=== PATIENT | male | born 1955 | race African-American/Black ===

== ENCOUNTER 2018-11-29 02:54 | Inpatient (IN) | payer OTHER ==
[2018-11-29] VITALS (9 sets, daily range): BP systolic 118–179; BP diastolic 68–105
[~2018-11-29] VITALS: Ht 180.3 cm; Wt 99.3 kg
--- NOTE | 2018-11-29 03:10 | NUR ---
ED Nurse Note: RECIEVED PT HUNTERPancho FROM HOME, PT HERE WITH C/O SEVERE 10/10 HEADACHE FOR ABOUT 5 HOURS WHICH HAS NOT LET HIM SLEEP, PT DENIES CP, SOB, FEVERS OR ANY OTHER COMPLAINTS, NO VISUAL CHANGES OR DIZZINESS JUST PAIN, PT IMMEDIATELY GOWNED AND PLACED ON CARDIAC MONITORING, IV LINE PLACED AND LABS DONE ALSO, MD AT BEDSIDE, WILL RESUME CARE ORDERED AND CLOSELY MONITOR.
[2018-11-29] MEDS ORDERED: Metoclopramide 10mg/2ml Inj IVP ONE (03:15)
[2018-11-29] MEDS ORDERED: Ketorolac 30mg Inj IV ONE (03:15)
--- NOTE | 2018-11-29 03:17 | Emergency Room Report ---
History of Present Illness General Chief Complaint: Headache Source: Patient Present Illness HPI This is a 63-year-old male with a history of high blood pressure. He presents with chief complaint of a headache for the last 5 hours. He said his blood pressure is high. Normally do not get much headache. Pain is throbbing in nature. Diffuse. No focal deficit. No relief with his blood pressure medication. Patient said that noticed some slight slurring of his speech tonight. Denies any trauma or fever. No nausea no vomiting. No chest pain. Pain is 10 out of 10. Allergies: Coded Allergies: No Known Allergies (Unverified , 11/29/18) Patient History Past Medical History: see triage record, old chart reviewed, HTN, CVA/TIA Past Surgical History: other Pertinent Family History: none Social History: Denies: smoking, alcohol use, drug use Immunizations: other Reviewed Nursing Documentation: PMH: Agreed; PSxH: Agreed Nursing Documentation-PMH Hx Hypertension: Yes Hx Diabetes: Yes Hx Cerebrovascular Accident: Yes - stroke 1999, hypercholesterol Review of Systems Eye: Denies: eye pain, blurred vision ENT: Denies: ear pain, nose congestion, throat swelling Respiratory: Denies: cough, shortness of breath Cardiovascular: Denies: chest pain, palpitations Gastrointestinal: Denies: abdominal pain, diarrhea, nausea, vomiting Musculoskeletal: Denies: back pain, joint pain Skin: Denies: rash Neurological: Reports: headache; Denies: numbness Endocrine: Denies: increased thirst, increased urine Hematologic/Lymphatic: Denies: easy bruising All Other Systems: negative except mentioned in HPI Physical Exam Vital Signs Date Time Temp Pulse Resp B/P (MAP) Pulse Ox O2 Delivery O2 Flow Rate FiO2 11/29/18 02:55 98.1 86 18 180/90 (120) 97 Room Air Vitals with high blood pressure Sp02 EP Interpretation: reviewed, normal General Appearance: well appearing, no apparent distress, alert Head: normocephalic, atraumatic Eyes: bilateral eye PERRL, bilateral eye EOMI ENT: hearing grossly normal, normal pharynx Neck: full range of motion, supple, no meningismus Respiratory: chest non-tender, lungs clear, normal breath sounds Cardiovascular #1: regular rate, rhythm, no murmur Gastrointestinal: normal bowel sounds, non tender, no mass, no organomegaly, no bruit, non-distended Musculoskeletal: back normal, gait/station normal, normal range of motion Psychiatric: mood/affect normal Skin: warm/dry Medical Decision Making Diagnostic Impression: Primary Impression: CVA (cerebral vascular accident) Qualified Codes: I63.9 - Cerebral infarction, unspecified Additional Impressions: Hypertension Qualified Codes: I10 - Essential (primary) hypertension Cocaine abuse ER Course Patient presents with headache and high blood pressure. CT scan showed a subacute infarct in the right posterior parietal region measures 5.1 x 4.3 cm. Other than subjective slurred speech, he has no other focal deficit. He does have some imbalance for the last week. Given aspirin here. I gave him hydralazine for his blood pressure. We will try to keep blood pressure around 170-[address] Mixon, neurologist. I also contacted Dr. Romero for admission. EKG Diagnostic Results Rate: normal Rhythm: NSR ST Segments: no acute changes ASA given to the pt in ED: Yes Rhythm Strip Diag. Results EP Interpretation: yes Rate: 80 Rhythm: NSR, no PVC's, no ectopy CT/MRI/US Diagnostic Results CT/MRI/US Diagnostic Results : Imaging Test Ordered: CT head Impression Read by radiologist. Infarct in the right posterior parietal region of the brain. Most likely subacute. Last Vital Signs Date Time Temp Pulse Resp B/P (MAP) Pulse Ox O2 Delivery O2 Flow Rate FiO2 11/29/18 02:55 98.1 86 18 180/90 (120) 97 Room Air Status: improved Disposition: ADMITTED INPATIENT Condition: Serious Benson Chavez MD Nov 29, 2018 03:17
[2018-11-29 03:39] LABS: BASOPHILS % (AUTO) 1.3 % (0.0-2.0); EOSINOPHILS % (AUTO) 0.6 % (0.0-3.0); HEMATOCRIT 43.2 % (42.0-52.0); HEMOGLOBIN 15.3 G/DL (14.2-18.0); LYMPHOCYTES % (AUTO) 20.3 % (20.0-45.0); MEAN CORPUSCULAR VOLUME 82 FL (80-99); MONOCYTES % (AUTO) 9.3 % (1.0-10.0); NEUTROPHILS % (AUTO) 68.5 % (45.0-75.0); PLATELET COUNT 331 K/UL (150-450); RED BLOOD COUNT 5.25 M/UL (4.70-6.10); RED CELL DISTRIBUTION WIDTH 10.2 % (11.6-14.8)
[2018-11-29 03:48] LABS: ANION GAP 9 mmol/L (5-15); BLOOD UREA NITROGEN 17 mg/dL (7-18); CALCIUM 9.1 MG/DL (8.5-10.1); CARBON DIOXIDE 26 MMOL/L (21-32); CHLORIDE 98 MMOL/L (98-107); CREATININE 1.5 MG/DL (0.55-1.30); POTASSIUM 4.1 MMOL/L (3.5-5.1); SODIUM 133 MMOL/L (136-145)
[2018-11-29] MEDS ORDERED: Acetaminophen 500mg (ES) tab ORAL ONE ×2 (04:25→04:30)
--- NOTE | 2018-11-29 04:30 | NUR ---
ED Nurse Note: PT CONTINUES TO REST IN BED, HEADACHE AT 7/10 AFTER MEDS, EFFECTIVE FOR B/P, PT POSITIVE FOR STROKE, PT SAT UP AND SWALLOW EXAM DONE, PT TOLERATED WELL, NO SWALLOWING DIFFICULTIES NOTED, PT WAS NOTED WITH SHAKING AND LESS HAND STRENGTH OF LEFT HAND AND PT STATES TOLD HIM EARLIER TODAY HIS SPEECH SEEMED SLURRED AT TIMES AND PT ALSO STATES HE HAD FALL X 2 YESTERDAY, PT REMAINS ON CARDIAC MONITORING, WILL CONTINUE TO MONITOR AND PREPARE FOR DISPOSITION, ADMIT OR TRANSFER.
[2018-11-29 05:08] LABS: APPEARANCE,URINE CLEAR; BILIRUBIN, URINE NEGATIVE (NEGATIVE); GLUCOSE, URINE (UA) 4+ (NEGATIVE); KETONES,URINE 1+ (NEGATIVE); LEUKOCYTE ESTERASE ,URINE NEGATIVE (NEGATIVE); NITRITE,URINE NEGATIVE (NEGATIVE); PH,URINE 5 (4.5-8.0); PROTEIN,URINE 4+ (NEGATIVE); UROBILINOGEN,URINE 4 MG/DL (0.0-1.0)
[2018-11-29 05:16] LABS: COLOR,URINE YELLOW
--- NOTE | 2018-11-29 06:00 | NUR ---
NURSE NOTES: Pt report has been received from [facility]. Pt is alert and oriented times 4, able to follow commands. pt pupils are round and reactive to light and accommodating bilaterally. Pt has a quality assurance monitor body place, active, and showing NSR on the monitor. no signs or symptoms of acute cardiac distress noted. pt is saturating at 100%, no signs or symptoms of acute respiratory distress noted. all safety precautions are active, bed low and locked, call light within reach, bed rails up times 3. pt demands all belongings at bed side, belongings list has been signed/ confirmed by PT. will establish plan of care.
[2018-11-29] MEDS ORDERED: ERGOCALCIFEROL1 GM MC (06:11)
[2018-11-29] MEDS ORDERED: INSULIN LI100 UNIT/1 SQ (06:13)
[2018-11-29] MEDS ORDERED: ATHLETIC FOOT C30 GM TOPIC (06:13)
[2018-11-29] MEDS ORDERED: PRINIVIL10 MG ORAL (06:13)
[2018-11-29] MEDS ORDERED: GABAPENTIN400 MG ORAL (06:13)
[2018-11-29] MEDS ORDERED: OMEPRAZOLE20 M2 ORAL (06:13)
[2018-11-29] MEDS ORDERED: METFORMIN HCL500 M1 ORAL (06:13)
[2018-11-29] MEDS ORDERED: PROSCAR5 MG ORAL (06:13)
--- NOTE | 2018-11-29 06:15 | NUR ---
TRANSFER TO FLOOR: Patient transferred to Tele as ordered, per . Report given to KALE Rosario
[2018-11-29] MEDS ORDERED: Acetaminophen 500mg (ES) tab ORAL PRN (06:30)
--- NOTE | 2018-11-29 07:08 | NUR ---
NURSE NOTES: received patient report from maia jackson.patient is on bed asleep. not in acute distress. patient has an order for tele transfer. no arrythmias reported during the night. bed is low and locked for safety. will follow plan of care.
--- NOTE | 2018-11-29 07:25 | NUR ---
HAND-OFF: Report given to Marlena HENLEY CHIDI.
--- NOTE | 2018-11-29 07:46 | NUR ---
NURSE NOTES: left a message to dr cannon to call back regarding dr fernández order to caLL dr cannon regarding blood sugar level of 400. awaits callback and new order as of this time.
--- NOTE | 2018-11-29 09:42 | Diagnostic Imaging Report ---
Indications: Headache for approximately 6 hours Technique: Spiral acquisitions obtained through the brain. Angled axial and coronal 5 x 5 mm slices were reconstructed. Total dose length product 1414.79 mGycm. CTDI vol(s) 70.38 mGy. Dose reduction achieved using automated exposure control Comparison: Findings: Low-attenuation is seen involving the posterior parasagittal parietal lobe and occipital lobe. There is slight ex vacuo dilatation of the atrium and and temporal horn of the right lateral ventricle. There is generalized mild age-related enlargement of the extra-axial CSF spaces. There is periventricular deep white matter low-attenuation. There are multiple old lacunar infarcts in the left basal ganglia. No acute hemorrhage. No mass effect nor midline shift. Normal lópez-white differentiation elsewhere. There is some soft tissue thickening of the high parietal scalp at the vertex. Impression: Late subacute versus old right posterior cerebral artery distribution infarct Other old infarcts as described Other chronic and age-related changes, as described Negative for acute intracranial bleed or mass effect Questionable high parietal midline scalp soft tissue injury-correlate with clinical history and findings This agrees with the preliminary interpretation provided overnight by [facility] teleradiology service. The CT scanner at [facility] is accredited by the [employer] and the scans are performed using protocols designed to limit radiation exposure to as low as reasonably achievable to attain images of sufficient resolution adequate for diagnostic evaluation.
[2018-11-29] MEDS ORDERED: Levemir Flexpen SUBQ ONE (11:00)
[2018-11-29] MEDS: NovoLOG Insulin Flexpen SUBQ SCH ×3 (11:24→21:13)
--- NOTE | 2018-11-29 12:08 | NUR ---
CASE MANAGEMENT: INITIAL REVIEW 63 YO M BROOK FROM HOME CC: CASTILLO. HTN. DM. PMHx: HTN. CVA/TIA. SI:STROKE T 98.1 HR 86 RR 18 B/P 180/90 SATS 97% ON RA NA 133 CR 1.5 GLU 400 UTOX (+COCAINE) IS: HYDRALAZINE IV X1 NS BOLUS X1 REGLAN IV X1 TORADOL IV X1 TYLENOL POX1 PATIENT ADMITTED TO SDU 11/29/2018 @ 0447 DCP: PATIENT TO BE DISCHARGED TO HOME ONCE MEDICALLY CLEARED. PLAN OF CARE: CARDIO CONSULT Addendum: 11/29/18 at 1707 by Dorinda Mandel CM INTERQUAL MET
--- NOTE | 2018-11-29 12:17 | Consultation ---
Consult Note Consult Note asked to eval for elevated Cr and HTN management This is a 63-year-old male with a history of high blood pressure. He presents with chief complaint of a headache for the last 5 hours. He said his blood pressure is high. Normally do not get much headache. Pain is throbbing in nature. Diffuse. No focal deficit. No relief with his blood pressure medication. Patient said that noticed some slight slurring of his speech tonight. Denies any trauma or fever. No nausea no vomiting. No chest pain. Pain is 10 out of 10. No Known Allergies (Unverified , 11/29/18) Hx Hypertension: Yes Hx Diabetes: Yes Hx Cerebrovascular Accident: Yes - stroke 1999, hypercholesterol examined data reviewed . Assessment/Plan HTN OOC Cocaine abuse CVA High Chol Proteinuria BP control BS control no beta blockers check labs, chol.... per orders Manan Amezcua MD Nov 29, 2018 12:17
[2018-11-29] MEDS ORDERED: Tamsulosin 0.4mg cap ORAL SCH (12:30)
[2018-11-29] MEDS ORDERED: Aspirin Baby 81mg ORAL SCH (12:30)
--- NOTE | 2018-11-29 13:39 | NUR ---
*-* INSURANCE *-* ALL CLINICALS AND REVIEWS HAVE BEEN FAXED TO: [[facility] [employer]] CLINICALS TO BE FAXED AT [phone]
--- NOTE | 2018-11-29 14:17 | NUR ---
ST NOTE: BEDSIDE SWALLOW EVAL RECEIVED BEDSIDE SWALLOW EVAL ORDER CHART REVIEWED PRIOR THE EVALUATION PT IS A 63-YEAR-OLD MALE WHO WAS ADMITTED DUE TO CVA AND SLURRED SPEECH. PT HAS H/O CVA(1999) W/L-SIDED WEAKNESS, HTN AND DM, COCAINE USE. PER HEAD CT: LATE SUBACUTE VS OLD R POSTERIOR CEREBRAL ARTERY DISTRIBUTION INFARCT. OLD LACUNAR INFARCTS IN THE L BASAL GANGLIA. PT LIVES AT HOME. CURRENT STATUS: PT SEEN AT BEDSIDE IN AM. ALERT, COOPERATIVE, ABLE TO FOLLOW DIRECTIONS, DENIED ANY SWALLOWING DIFFICULTY, PT'S SPEECH IS INTELLIGIBLE. GIVEN PO TRIALS: THIN(3OZ, SELF, ANNIE PROTOCOL), PUREE(TSP) AND CRACKER. INITIAL IMPRESSION: MILD R-SIDED FACIAL WEAKNESS, GOOD MASTICATION TIME, GOOD ORAL TRANSIT TIME AND FAIR LARYNGEAL ELEVATION, NO OVERT S/S OF ASPIRATION. OVERALL, PT'S SWALLOWING SEEMS FUNCTIONAL. HAS SILENT ASPIRATION RISK DUE TO LATE SUBACUTE CVA. RECOMMENDATIONS: 1. SLOWLY INITIATE SOFT, EASY CHEW WITH THIN LIQUIDS DIET. 2. ASPIRATION PRECAUTIONS 3. CONSIDER MODIFIED BARIUM SWALLOW STUDY IP OR OP. D/W DAVID HENLEY.
--- NOTE | 2018-11-29 15:07 | NUR ---
PT EVALUATION NOTE Patient seen for initial evaluation, see complete evaluation for details. Patient presents with impaired balance and coordination, generalized weakness which affects patient's ability to perform transfers and ambulation safely. Patient will benefit from skilled inpatient PT intervention to address balance, safety, strength and functional mobility. Recommend discharge home with home PT vs short term SNF/ARU depending on patient's progress once medically cleared by MD. Patient may require assistance at home as patient lives alone. Recommend FWW for home use for ambulation as patient has history of falls using his SPC. Addendum: 11/29/18 at 1508 by RAUL TRUJILLO PT Amended: Links added.
[2018-11-29] MEDS: Tamsulosin 0.4mg cap ORAL SCH (17:05)
--- NOTE | 2018-11-29 18:00 | NUR ---
NURSE NOTES: left a message to dr paris regarding this patient. awaits callback and new order.
--- NOTE | 2018-11-29 19:01 | NUR ---
HAND-OFF: Report given to abran jackson.
--- NOTE | 2018-11-29 19:02 | NUR ---
NURSE NOTES: Received patient from Eitan RN. Patient is resting with no signs of distress. Patient on room air and running NS at 50cc an hour. Bed is at its lowest position, call light in reach and X3 bed rails up.Will continue to monitor.
[2018-11-29] MEDS ORDERED: NovoLOG Insulin Flexpen SUBQ SCH (21:00)
[2018-11-29] MEDS: Levemir Flexpen SUBQ SCH (21:14)
--- NOTE | 2018-11-29 22:27 | NUR ---
NURSE NOTES: Call Dr. Romero regarding patients's head and eye pain 10/10. Pain persists 30min. after prescribe pain medication of Tylenol is given. Patient asked for stronger pain medication.
--- NOTE | 2018-11-29 22:51 | NUR ---
NURSE NOTES: Dr. Romero called back and referred me to call Dr Mullins for pain management. Dr Romero is reluctant to prescribe morphine because it may hide possible symptoms of worsening stroke
[2018-11-29] MEDS ORDERED: Gabapentin 300 MG/6 ML Soln ORAL SCH (23:10)
--- NOTE | 2018-11-29 23:15 | Consultation ---
DATE OF CONSULTATION: 11/29/2018 NEPHROLOGY CONSULTATION CONSULTING PHYSICIAN: Devin Velasco M.D. REFERRING PHYSICIAN: Erin Romero M.D. REASON FOR CONSULTATION: Diabetes management. HISTORY OF PRESENT ILLNESS: The patient is a 63-year-old male with history of high blood pressure, diabetes, insulin dependent, presents to the hospital with headache for 5 hours, blood pressure is high, admitted to the hospital for observation and treatment and I was called to manage diabetes. The patient's noticed some slight slurring of the speech, therefore, CVA needs to be ruled out. PAST MEDICAL HISTORY: Diabetes, hypertension, CVA, and transient ischemic attack. PAST SURGICAL HISTORY: None. ALLERGIES TO MEDICATIONS: None. FAMILY HISTORY: Diabetes. SOCIAL HISTORY: No smoking, alcohol, or drug use. REVIEW OF SYSTEMS: As per history of present illness. PHYSICAL EXAMINATION: GENERAL: He is awake and alert. VITAL SIGNS: Blood pressure is 174/100, pulse of 71, temperature of 97.5, and respiratory rate of 21. HEENT: Pupils reactive to light. Sclerae anicteric. NECK: No jugular venous distention. HEART: Regular. LUNGS: Clear. ABDOMEN: Positive bowel sounds. EXTREMITIES: No, clubbing cyanosis, or edema. LABORATORY VALUES: Sodium 132, potassium 4.1, chloride 98, bicarbonate 26, BUN 17, creatinine 1.5, and glucose 400. WBC 4, hemoglobin 15, hematocrit 42, and platelets of 331,000. DIAGNOSES: 1. Severe headache. 2. Hypertension, out of control. 3. Diabetes, out of control. PLAN: 1. Levemir 20 units at bedtime. 2. Starlix 120 mg before each meal. 3. Continue NovoLog sliding scale before meals and at bedtime, high dose. 4. Further adjustment according to the blood glucose values. Thank you, Dr. Romero, for the courtesy of this consultation. Devin Velasco M.D. DR: MARY ELLEN JOB#: [id number] CC: KATHARINA
[2018-11-30] VITALS (7 sets, daily range): BP systolic 160–178; BP diastolic 75–98
[2018-11-30] MEDS: HYDROmorphone 1mg/ml Carpuject IVP PRN ×6 (00:03→21:33)
--- NOTE | 2018-11-30 02:09 | Consultation ---
History of Present Illness General Date patient seen: Nov 29, 2018 Chief Complaint: CVA Referring physician: Dr. Romero Present Illness HPI Susan Santillan is a 63-year-old male with a history of high blood pressure who presents with chief complaint of a headache and uncontrolled hypertension for the last 5 hours. He reported that the pain was throbbing and diffuse with no lateral focus. He did not demonstrated any gross focal deficits but as per his did have some slurred speech as well. CT scan of his brain revealed likely subacute infarct Allergies: Coded Allergies: No Known Allergies (Unverified , 11/29/18) Medication History Scheduled Clotrimazole* (Athletic Foot Cream*), 1 APPLIC TOPIC TWICE A DAY, (Reported) Finasteride* (Proscar*), 5 MG ORAL DAILY, (Reported) Gabapentin* (Gabapentin*), 400 MG ORAL THREE TIMES A DAY, (Reported) Lisinopril* (Prinivil*), 10 MG ORAL DAILY, (Reported) Metformin Hcl* (Metformin Hcl*), 500 MG ORAL TWICE A DAY, (Reported) Omeprazole (Omeprazole), 20 MG ORAL DAILY, (Reported) Miscellaneous Medications Ergocalciferol (Vitamin D2) (Ergocalciferol), 1 GM MC, (Reported) Insulin Lispro (Insulin Lispro), 100 UNIT SQ, (Reported) Patient History Healthcare decision maker Resuscitation status Full Code Advanced Directive on File Past Medical/Surgical History Past Medical/Surgical History: (1) Hypertension Physical Exam General Appearance: WD/WN, no apparent distress, alert HEENT: normocephalic, atraumatic, anicteric, mucous membranes moist, PERRL Neck: non-tender, normal alignment, supple, normal inspection Respiratory/Chest: normal breath sounds, no respiratory distress, no accessory muscle use Cardiovascular/Chest: normal rate Extremities: normal range of motion, non-tender, normal inspection, no calf tenderness, normal capillary refill, non-pitting, no edema, no cyanosis Skin Exam: normal pigmentation, warm/dry 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, no motor/sensory deficits, alert, oriented x 3, responsive, normal mood/affect, no Babinski Last 24 Hour Vital Signs Date Time Temp Pulse Resp B/P (MAP) Pulse Ox O2 Delivery O2 Flow Rate FiO2 11/29/18 20:00 97.5 80 18 118/68 (85) 100 11/29/18 19:40 74 11/29/18 17:05 71 174/100 11/29/18 16:50 152/95 (114) 11/29/18 16:27 174/100 11/29/18 16:20 97.5 71 21 174/100 (124) 97 11/29/18 16:00 77 11/29/18 14:45 72 20 162/92 (115) 11/29/18 14:42 173/105 (127) 11/29/18 13:15 81 145/95 11/29/18 12:00 97.2 20 145/95 (112) 98 11/29/18 11:40 66 11/29/18 09:00 Room Air 11/29/18 08:00 97.7 151/83 (105) 11/29/18 07:55 Room Air 11/29/18 07:31 81 11/29/18 06:27 98.1 88 16 168/85 100 Room Air 11/29/18 06:12 86 11/29/18 05:00 98.1 86 16 168/85 100 Room Air 11/29/18 04:58 98.1 11/29/18 04:02 98.1 11/29/18 04:00 98.1 18 179/72 100 Room Air 11/29/18 03:28 204/110 11/29/18 02:55 98.1 86 18 180/90 (120) 97 Room Air Intake and Output 11/29/18 11/30/18 19:00 07:00 Intake Total 1050 ml 50 ml Output Total 200 ml Balance 850 ml 50 ml Intake Oral 450 ml IV Total 600 ml 50 ml Output Urine Total 200 ml # Voids 3 # Bowel Movements 1 Laboratory Tests Test 11/29/18 03:05 11/29/18 05:00 White Blood Count 7.0 K/UL (4.8-10.8) Red Blood Count 5.25 M/UL (4.70-6.10) Hemoglobin 15.3 G/DL (14.2-18.0) Hematocrit 43.2 % (42.0-52.0) Mean Corpuscular Volume 82 FL (80-99) Mean Corpuscular Hemoglobin 29.2 PG (27.0-31.0) Mean Corpuscular Hemoglobin Concent 35.4 G/DL (32.0-36.0) Red Cell Distribution Width 10.2 % (11.6-14.8) L Platelet Count 331 K/UL (150-450) Mean Platelet Volume 6.9 FL (6.5-10.1) Neutrophils (%) (Auto) 68.5 % (45.0-75.0) Lymphocytes (%) (Auto) 20.3 % (20.0-45.0) Monocytes (%) (Auto) 9.3 % (1.0-10.0) Eosinophils (%) (Auto) 0.6 % (0.0-3.0) Basophils (%) (Auto) 1.3 % (0.0-2.0) Sodium Level 133 MMOL/L (136-145) L Potassium Level 4.1 MMOL/L (3.5-5.1) Chloride Level 98 MMOL/L (98-107) Carbon Dioxide Level 26 MMOL/L (21-32) Anion Gap 9 mmol/L (5-15) Blood Urea Nitrogen 17 mg/dL (7-18) Creatinine 1.5 MG/DL (0.55-1.30) H Estimat Glomerular Filtration Rate 47.4 mL/min (>60) Glucose Level 400 MG/DL (74-106) H Calcium Level 9.1 MG/DL (8.5-10.1) Urine Color Yellow Urine Appearance Clear Urine pH 5 (4.5-8.0) Urine Specific Frederica 1.015 (1.005-1.035) Urine Protein 4+ (NEGATIVE) H Urine Glucose (UA) 4+ (NEGATIVE) H Urine Ketones 1+ (NEGATIVE) H Urine Blood 2+ (NEGATIVE) H Urine Nitrite Negative (NEGATIVE) Urine Bilirubin Negative (NEGATIVE) Urine Urobilinogen 4 MG/DL (0.0-1.0) H Urine Leukocyte Esterase Negative (NEGATIVE) Urine RBC 5-10 /HPF (0 - 0) H Urine WBC 2-4 /HPF (0 - 0) Urine Squamous Epithelial Cells Few /LPF (NONE/OCC) Urine Bacteria Few /HPF (NONE) Urine Coarse Granular Casts 0-2 /LPF (NONE) H Urine Opiates Screen Negative (NEGATIVE) Urine Barbiturates Screen Negative (NEGATIVE) Phencyclidine (PCP) Screen Negative (NEGATIVE) Urine Amphetamines Screen Negative (NEGATIVE) Urine Benzodiazepines Screen Negative (NEGATIVE) Urine Cocaine Screen Positive (NEGATIVE) H Urine Marijuana (THC) Screen Negative (NEGATIVE) Height (Feet): 5 Height (Inches): 11.00 Weight (Pounds): 219 Medications Current Medications Medications (Trade) Dose Ordered Sig/Jessie Route PRN Reason Start Time Stop Time Status Last Admin Dose Admin Acetaminophen (Tylenol) 500 mg Q4H PRN ORAL Mild Pain/Temp > 100.5 11/29/18 06:30 12/29/18 06:29 11/29/18 20:55 Amlodipine Besylate (Norvasc) 5 mg BID ORAL 11/29/18 18:00 12/29/18 17:59 11/29/18 17:05 Aspirin (ASA) 81 mg DAILY ORAL 11/30/18 09:00 12/30/18 08:59 Clonidine HCl (Catapres Tab) 0.1 mg Q4H PRN ORAL bp over 165 syst & 100 diastol 11/29/18 12:30 12/29/18 12:29 11/29/18 16:27 Dextrose (Dextrose 50%) 25 ml Q30M PRN IV Hypoglycemia 11/29/18 18:45 12/29/18 18:44 Dextrose (Dextrose 50%) 50 ml Q30M PRN IV Hypoglycemia 11/29/18 18:45 12/29/18 18:44 Finasteride (Proscar) 5 mg DAILY ORAL 11/29/18 09:00 12/29/18 08:59 11/29/18 08:16 Gabapentin (Neurontin) 300 mg TID ORAL 11/30/18 00:00 12/29/18 00:00 11/30/18 01:15 Hydromorphone HCl (Dilaudid) 1 mg Q4H PRN IVP For Pain 11/29/18 23:15 12/06/18 23:14 11/30/18 00:03 Insulin Aspart (NovoLOG) AC+HS SUBQ 11/29/18 21:00 12/29/18 11:29 11/29/18 21:13 Insulin Detemir (Levemir) 20 units BEDTIME SUBQ 11/29/18 21:00 12/29/18 20:59 11/29/18 21:14 Nateglinide (Starlix) 120 mg TIAC ORAL 11/29/18 16:30 12/29/18 16:29 11/29/18 16:27 Pantoprazole (Protonix) 40 mg BID ORAL 11/29/18 18:00 12/29/18 08:59 11/29/18 17:05 Sodium Chloride 1,000 ml @ 50 mls/hr Q20H IV 11/29/18 12:30 12/29/18 12:29 11/29/18 13:16 Tamsulosin HCl (Flomax) 0.4 mg BID ORAL 11/29/18 18:00 12/29/18 17:59 11/29/18 17:05 Assessment/Plan Problem List: (1) Cocaine abuse ICD Codes: F14.10 - Cocaine abuse, uncomplicated SNOMED: 95997132 (2) Hypertension ICD Codes: I10 - Essential (primary) hypertension SNOMED: 53523496 Qualifiers: Qualified Codes: I10 - Essential (primary) hypertension (3) CVA (cerebral vascular accident) ICD Codes: I63.9 - Cerebral infarction, unspecified SNOMED: 303696675 Qualifiers: Qualified Codes: I63.9 - Cerebral infarction, unspecified Status: stable Assessment/Plan: CVA/ HTN likely secondary to pre-existing HTN and Cocaine Abuse MRI Brain w/o contrast ordered MRA Head and Neck Monitor patient for signs of Cocaine W/D- May consider administration of 1mg Ativan Q 6 hrs PRN for agitation/ signs of w/d Check Troponin Check ECHO Check HgBA1c Check Lipids May start ASA 81mg SBP < 160 Telemetry monitoring Psych Assessment regarding cocaine abuse. Q 4 Hour Neuro Obs Jacey Darby N.P. Nov 30, 2018 02:09
--- NOTE | 2018-11-30 02:18 | Neurology Progress Note ---
Interim History Interim History ROS Limited/Unobtainable: No Complaints: CVA -Acute/Subacute Events: Labile BP- not stable to be off Telemetry Interim History This visit was performed on November 30, [address] Ramon Harvey. Review of Systems All Systems: reviewed and negative except above Objective Physical Exam Last Vital Signs Date Time Temp Pulse Resp B/P (MAP) Pulse Ox O2 Delivery O2 Flow Rate FiO2 11/29/18 20:00 97.5 80 18 118/68 (85) 100 11/29/18 09:00 Room Air Laboratory Tests Test 11/29/18 03:05 11/29/18 05:00 White Blood Count 7.0 K/UL (4.8-10.8) Red Blood Count 5.25 M/UL (4.70-6.10) Hemoglobin 15.3 G/DL (14.2-18.0) Hematocrit 43.2 % (42.0-52.0) Mean Corpuscular Volume 82 FL (80-99) Mean Corpuscular Hemoglobin 29.2 PG (27.0-31.0) Mean Corpuscular Hemoglobin Concent 35.4 G/DL (32.0-36.0) Red Cell Distribution Width 10.2 % (11.6-14.8) L Platelet Count 331 K/UL (150-450) Mean Platelet Volume 6.9 FL (6.5-10.1) Neutrophils (%) (Auto) 68.5 % (45.0-75.0) Lymphocytes (%) (Auto) 20.3 % (20.0-45.0) Monocytes (%) (Auto) 9.3 % (1.0-10.0) Eosinophils (%) (Auto) 0.6 % (0.0-3.0) Basophils (%) (Auto) 1.3 % (0.0-2.0) Sodium Level 133 MMOL/L (136-145) L Potassium Level 4.1 MMOL/L (3.5-5.1) Chloride Level 98 MMOL/L (98-107) Carbon Dioxide Level 26 MMOL/L (21-32) Anion Gap 9 mmol/L (5-15) Blood Urea Nitrogen 17 mg/dL (7-18) Creatinine 1.5 MG/DL (0.55-1.30) H Estimat Glomerular Filtration Rate 47.4 mL/min (>60) Glucose Level 400 MG/DL (74-106) H Calcium Level 9.1 MG/DL (8.5-10.1) Urine Color Yellow Urine Appearance Clear Urine pH 5 (4.5-8.0) Urine Specific [place] 1.015 (1.005-1.035) Urine Protein 4+ (NEGATIVE) H Urine Glucose (UA) 4+ (NEGATIVE) H Urine Ketones 1+ (NEGATIVE) H Urine Blood 2+ (NEGATIVE) H Urine Nitrite Negative (NEGATIVE) Urine Bilirubin Negative (NEGATIVE) Urine Urobilinogen 4 MG/DL (0.0-1.0) H Urine Leukocyte Esterase Negative (NEGATIVE) Urine RBC 5-10 /HPF (0 - 0) H Urine WBC 2-4 /HPF (0 - 0) Urine Squamous Epithelial Cells Few /LPF (NONE/OCC) Urine Bacteria Few /HPF (NONE) Urine Coarse Granular Casts 0-2 /LPF (NONE) H Urine Opiates Screen Negative (NEGATIVE) Urine Barbiturates Screen Negative (NEGATIVE) Phencyclidine (PCP) Screen Negative (NEGATIVE) Urine Amphetamines Screen Negative (NEGATIVE) Urine Benzodiazepines Screen Negative (NEGATIVE) Urine Cocaine Screen Positive (NEGATIVE) H Urine Marijuana (THC) Screen Negative (NEGATIVE) General: well developed, well nourished Head: normocophalic Neck: no rigidity EENT: benign Neurologic Exam Mental Status: awake, alert, oriented x4, normal cognition, good mathematical skills, normal recent memory, normal remote memory, preserved visuospatial function Speech: normal speech, no dysarthia Language: normal language, no aphasia Cranial Nerve II: fundus normal, visual abreu, no papilledema Cranial Nerves III, IV, : PERRLA, EOMI, pupils Cranial Nerve V: normal facial sensations, temporales function normal, masseters function normal, pterygoids function normal Cranial Nerve VII: no facial asymmetry, normal facial expressions Cranial Nerve VIII: normal hearing, no nystagmus Cranial Nerve IX: normal palate elevation, gag response Cranial Nerve X: no voice hoarseness Cranial Nerve XI: SCM symmetric, trapezii function normal Cranial Nerve XII: tongue midline, no tongue atrophy/fasciculations Motor System: normal muscle tone, strength 5/5, no involuntary movement, no muscle wasting Sensory: normal pinprick, normal light touch, normal position sense, normal graphesthesia Coordination: normal finger to nose bilaterally, normal heel to vasques bilaterally, negative Romberg test Deep Tendon Reflexes: 2+ bicep (L), 2+ bicep (R), 2+ tricep (L), 2+ tricep (R) , 2+ brachioradialis (L), 2+ brachioradialis (R), 2+ knee (L), 2+ knee (R), 2+ ankle (L), 2+ ankle (R) Stance: normal Gait: stable, normal regular, heel + toe gait Imaging [facility] [address] [place] [address] [phone], fax [phone] Ethan Barbosa M.D. Career Developer Patient : PINEDA GANDHI Referring Physician: Benson Chavez MD ID Number: [id number] Service Date: 11/29/18 : 1955 Report Date: 11/29/18 Gender: M Accession No.: [id number] Location: 2W Procedure: CT Head no Contrast Indications: Headache for approximately 6 hours Technique: Spiral acquisitions obtained through the brain. Angled axial and coronal 5 x 5 mm slices were reconstructed. Total dose length product 1414.79 mGycm. CTDI vol(s) 70.38 mGy. Dose reduction achieved using automated exposure control Comparison: Findings: Low-attenuation is seen involving the posterior parasagittal parietal lobe and occipital lobe. There is slight ex vacuo dilatation of the atrium and and temporal horn of the right lateral ventricle. There is generalized mild age- related enlargement of the extra-axial CSF spaces. There is periventricular deep white matter low-attenuation. There are multiple old lacunar infarcts in the left basal ganglia. No acute hemorrhage. No mass effect nor midline shift. Normal lópez-white differentiation elsewhere. There is some soft tissue thickening of the high parietal scalp at the vertex. Impression: Late subacute versus old right posterior cerebral artery distribution infarct Other old infarcts as described Other chronic and age-related changes, as described Negative for acute intracranial bleed or mass effect Questionable high parietal midline scalp soft tissue injury-correlate with clinical history and findings This agrees with the preliminary interpretation provided overnight by [facility] teleradiology service. The CT scanner at [facility] is accredited by the [employer] and the scans are performed using protocols designed to limit radiation exposure to as low as reasonably achievable to attain images of sufficient resolution adequate for diagnostic evaluation. Dictated By: Fahad Lin MD Electronically Signed By: Fahad Lin MD Signed Date/Time 11/29/18 3971 CC: Erin Romero MD; Benson Chavez MD Impression/Recommendations Problems: (1) Cocaine abuse (2) Hypertension (3) CVA (cerebral vascular accident) Assessment & Plan: There are multiple old lacunar infarcts in the left basal ganglia. No acute hemorrhage. No mass effect nor midline shift. Normal lópez-white differentiation elsewhere. There is some soft tissue thickening of the high parietal scalp at the vertex. Late subacute versus old right posterior cerebral artery distribution infarct (4) Diabetes mellitus out of control Status: not improved Recommendations Headache/ Dizziness secondary to CVA / HTN Query acuity of CVA with MRI Brain MRA Head/ Neck to evaluate cerebrovascular blood supply and vasculature for cocaine induced aneurysms SBP< 150 Cont ASA 81mg Labs Pending Echo Q4 Hour Neuro Obs Swallow studies pending PT Eval - recs for ARU/SNF potentially. Maintain normoglycemia with ISS Check HgBA1c/Lipids/ TSH etc. LABILE BP - please ensure IV hydralazine is in place as patient becomes symptomatic with hypertension. BP SHOULD NO LONGER BE PERMISSIVELY HYPERTENSIVE BECAUSE NOW THE RISK OF HEMORRAGHIC TRANSFER is higher than it is in the hyperacute setting BP PARAMETERS ARE SBP< 140 DBP< 100 Jacey Darby N.P. Nov 30, 2018 02:18
[2018-11-30] MEDS: NovoLOG Insulin Flexpen SUBQ SCH ×4 (06:28→21:15)
--- NOTE | 2018-11-30 06:40 | NUR ---
NURSE NOTES: Received pt from [facility] via bed. Pt transferred to unit without any incident. Pt is A/Ox4. [place] pt to room and unit. Received report from KALE Gomez. shelter monitor is in placed, IV site intact, asymptomatic and patent. Bed is in the lowest position and locked. Call light within reach. Belongings list checked and accounted. No signs/symptoms of acute distress noted at this time. Will continue plan of care.
--- NOTE | 2018-11-30 06:44 | General Progress Note ---
Assessment/Plan Problem List: (1) Diabetes mellitus out of control ICD Codes: E11.65 - Type 2 diabetes mellitus with hyperglycemia SNOMED: 59460510, 433501556 (2) CVA (cerebral vascular accident) ICD Codes: I63.9 - Cerebral infarction, unspecified SNOMED: 261787937 Qualifiers: Qualified Codes: I63.9 - Cerebral infarction, unspecified (3) Hypertension ICD Codes: I10 - Essential (primary) hypertension SNOMED: 40022569 Qualifiers: Qualified Codes: I10 - Essential (primary) hypertension (4) Cocaine abuse ICD Codes: F14.10 - Cocaine abuse, uncomplicated SNOMED: 35514631 Status: stable Assessment/Plan: continue Levemir 20 units qhs continue Starlix 120 mg ac tid continue NISS ac / hs Subjective Allergies: Coded Allergies: No Known Allergies (Unverified , 11/29/18) All Systems: reviewed and negative except above Subjective events noted glycemic control improved Item Value Date Time Bedside Blood Glucose 138 mg/dl H 11/30/18 0628 Bedside Blood Glucose 122 mg/dl H 11/30/18 0000 Bedside Blood Glucose 138 mg/dl H 11/29/18 2114 Bedside Blood Glucose 262 mg/dl H 11/29/18 1627 Bedside Blood Glucose 342 mg/dl H 11/29/18 1124 Objective Last 24 Hour Vital Signs Date Time Temp Pulse Resp B/P (MAP) Pulse Ox O2 Delivery O2 Flow Rate FiO2 11/30/18 03:19 62 11/30/18 00:00 97.4 65 18 165/75 (105) 96 11/30/18 00:00 70 11/29/18 21:00 Room Air 11/29/18 20:00 97.5 80 18 118/68 (85) 100 11/29/18 19:40 74 11/29/18 17:05 71 174/100 11/29/18 16:50 152/95 (114) 11/29/18 16:27 174/100 11/29/18 16:20 97.5 71 21 174/100 (124) 97 11/29/18 16:00 77 11/29/18 14:45 72 20 162/92 (115) 11/29/18 14:42 173/105 (127) 11/29/18 13:15 81 145/95 11/29/18 12:00 97.2 20 145/95 (112) 98 11/29/18 11:40 66 11/29/18 09:00 Room Air 11/29/18 08:00 97.7 151/83 (105) 11/29/18 07:55 Room Air 11/29/18 07:31 81 Intake and Output 11/29/18 11/30/18 19:00 07:00 Intake Total 1050 ml 537 ml Output Total 200 ml Balance 850 ml 537 ml Intake Oral 450 ml IV Total 600 ml 537 ml Output Urine Total 200 ml # Voids 3 # Bowel Movements 1 Height (Feet): 5 Height (Inches): 11.00 Weight (Pounds): 219 General Appearance: no apparent distress Neck: normal alignment Cardiovascular: normal rate Respiratory/Chest: lungs clear Abdomen: normal bowel sounds Pelvis: normal external exam Objective Current Medications Medications (Trade) Dose Ordered Sig/Jessie Route PRN Reason Start Time Stop Time Status Last Admin Dose Admin Acetaminophen (Tylenol) 500 mg Q4H PRN ORAL Mild Pain/Temp > 100.5 11/29/18 06:30 12/29/18 06:29 11/29/18 20:55 Amlodipine Besylate (Norvasc) 5 mg BID ORAL 11/29/18 18:00 12/29/18 17:59 11/29/18 17:05 Aspirin (ASA) 81 mg DAILY ORAL 11/30/18 09:00 12/30/18 08:59 Clonidine HCl (Catapres Tab) 0.1 mg Q4H PRN ORAL bp over 165 syst & 100 diastol 11/29/18 12:30 12/29/18 12:29 11/29/18 16:27 Dextrose (Dextrose 50%) 25 ml Q30M PRN IV Hypoglycemia 11/29/18 18:45 12/29/18 18:44 Dextrose (Dextrose 50%) 50 ml Q30M PRN IV Hypoglycemia 11/29/18 18:45 12/29/18 18:44 Finasteride (Proscar) 5 mg DAILY ORAL 11/29/18 09:00 12/29/18 08:59 11/29/18 08:16 Gabapentin (Neurontin) 300 mg TID ORAL 11/30/18 00:00 12/29/18 00:00 11/30/18 01:15 Hydromorphone HCl (Dilaudid) 1 mg Q4H PRN IVP For Pain 11/29/18 23:15 12/06/18 23:14 11/30/18 05:29 Insulin Aspart (NovoLOG) AC+HS SUBQ 11/29/18 21:00 12/29/18 11:29 11/30/18 06:28 Insulin Detemir (Levemir) 20 units BEDTIME SUBQ 11/29/18 21:00 12/29/18 20:59 11/29/18 21:14 Nateglinide (Starlix) 120 mg TIAC ORAL 11/29/18 16:30 12/29/18 16:29 11/30/18 06:32 Pantoprazole (Protonix) 40 mg BID ORAL 11/29/18 18:00 12/29/18 08:59 11/29/18 17:05 Sodium Chloride 1,000 ml @ 50 mls/hr Q20H IV 11/29/18 12:30 12/29/18 12:29 11/29/18 13:16 Tamsulosin HCl (Flomax) 0.4 mg BID ORAL 11/29/18 18:00 12/29/18 17:59 11/29/18 17:05 Devin Velasco MD Nov 30, 2018 06:44
--- NOTE | 2018-11-30 07:30 | NUR ---
HAND-OFF: Report given to KALE Gaffney.
--- NOTE | 2018-11-30 07:30 | History and Physical Report ---
DATE OF ADMISSION: 11/29/2018 NOTE: POOR AUDIO HISTORY OF PRESENT ILLNESS: The patient is admitted for rule out subacute CVA, presents with headache, hypertension, and elevated blood sugar. The patient has severe headache and ataxia, status post back pain, bilateral leg pain, and slurred speech for the past two days. He has history of CVA. Denies motor weakness. Denies paresthesia. Denies dizziness. The patient also has history of diabetes and hypertension. He has a high risk for stroke, admitted for rule out subacute stroke. The patient denies nausea, vomiting, or diarrhea. Denies fever or chills. Denies shortness of breath. Denies cough. Denies orthopnea. PAST MEDICAL HISTORY: History of CVA, hypertension, , BPH, and hyperlipidemia. PAST SURGICAL HISTORY: None. SOCIAL HISTORY: History of smoking, history of drug abuse, and history of alcohol abuse. MEDICATIONS: Refer to medications in the chart. ALLERGIES: No known allergies. FAMILY HISTORY: Noncontributory. REVIEW OF SYSTEMS: HEENT: Reports headache for two days. CHEST: Denies shortness of breath. Denies cough. CARDIOVASCULAR: Denies chest pain or orthopnea. GASTROINTESTINAL: Denies nausea, vomiting, or diarrhea. EXTREMITIES: He does have back pain. CENTRAL NERVOUS SYSTEM: Reports slurred speech and ataxia, status post headache for two days. PHYSICAL EXAMINATION: VITAL SIGNS: Temperature blood pressure 168/78. HEENT: PERRLA. NECK: Supple. No lymphadenopathy. CHEST: Clear to auscultation. CARDIOVASCULAR: Regular rate and rhythm. No murmurs or extra sounds. GASTROINTESTINAL: Soft, nontender, nondistended. No organomegaly. EXTREMITIES: No edema. NEUROLOGIC: Moves all four extremities. Strength is bilaterally equal on both sides. Reflexes are equal on both sides. LABORATORY DATA: elevated sugar. ASSESSMENT AND PLAN: 1. Rule out CVA. 2. Hypertension. 3. NIDDM. 4. Does have history of CVA, ataxia, and headaches. I have asked , Dr. Amezcua, Dr. Velasco to see the patient for the blood sugar control as well as for rule out stroke. The patient also had elevated sugar of greater than 400. Ali Davin Romero DR: NAKUL JOB#: [id number] CC:
--- NOTE | 2018-11-30 07:30 | NUR ---
HAND-OFF: Report given to My RN.
--- NOTE | 2018-11-30 08:03 | NUR ---
NURSE NOTES: Patient is alert and oriented. Patient is resting in bed. IV is intact, IVF is infusing. Patient is on room air. Side rails, are upx2, bed is locked, in lowest position, and call light is within reach. Will continue to monitor.
[2018-11-30] MEDS: Aspirin Baby 81mg ORAL SCH (08:41)
[2018-11-30] MEDS: Tamsulosin 0.4mg cap ORAL SCH ×2 (08:41→17:18)
--- NOTE | 2018-11-30 09:03 | Consultation ---
History of Present Illness General Date patient seen: Nov 30, 2018 Present Illness Allergies: Coded Allergies: No Known Allergies (Unverified , 11/29/18) Medication History Scheduled Clotrimazole* (Athletic Foot Cream*), 1 APPLIC TOPIC TWICE A DAY, (Reported) Finasteride* (Proscar*), 5 MG ORAL DAILY, (Reported) Gabapentin* (Gabapentin*), 400 MG ORAL THREE TIMES A DAY, (Reported) Lisinopril* (Prinivil*), 10 MG ORAL DAILY, (Reported) Metformin Hcl* (Metformin Hcl*), 500 MG ORAL TWICE A DAY, (Reported) Omeprazole (Omeprazole), 20 MG ORAL DAILY, (Reported) Miscellaneous Medications Ergocalciferol (Vitamin D2) (Ergocalciferol), 1 GM MC, (Reported) Insulin Lispro (Insulin Lispro), 100 UNIT SQ, (Reported) Patient History Healthcare decision maker Resuscitation status Full Code Advanced Directive on File Physical Exam Last 24 Hour Vital Signs Date Time Temp Pulse Resp B/P (MAP) Pulse Ox O2 Delivery O2 Flow Rate FiO2 11/30/18 08:41 65 160/86 11/30/18 04:00 97.8 62 17 178/80 (112) 96 11/30/18 04:00 62 11/30/18 03:19 62 11/30/18 00:00 97.4 65 18 165/75 (105) 96 11/30/18 00:00 70 11/29/18 21:00 Room Air 11/29/18 20:00 97.5 80 18 118/68 (85) 100 11/29/18 19:40 74 11/29/18 17:05 71 174/100 11/29/18 16:50 152/95 (114) 11/29/18 16:27 174/100 11/29/18 16:20 97.5 71 21 174/100 (124) 97 11/29/18 16:00 77 11/29/18 14:45 72 20 162/92 (115) 11/29/18 14:42 173/105 (127) 11/29/18 13:15 81 145/95 11/29/18 12:00 97.2 20 145/95 (112) 98 11/29/18 11:40 66 Intake and Output 11/29/18 11/30/18 19:00 07:00 Intake Total 1050 ml 537 ml Output Total 200 ml 300 ml Balance 850 ml 237 ml Intake Oral 450 ml IV Total 600 ml 537 ml Output Urine Total 200 ml 300 ml # Voids 3 1 # Bowel Movements 1 Height (Feet): 5 Height (Inches): 11.00 Weight (Pounds): 219 Medications Current Medications Medications (Trade) Dose Ordered Sig/Jessie Route PRN Reason Start Time Stop Time Status Last Admin Dose Admin Acetaminophen (Tylenol) 500 mg Q4H PRN ORAL Mild Pain/Temp > 100.5 11/29/18 06:30 12/29/18 06:29 11/29/18 20:55 Amlodipine Besylate (Norvasc) 5 mg BID ORAL 11/29/18 18:00 12/29/18 17:59 11/30/18 08:41 Aspirin (ASA) 81 mg DAILY ORAL 11/30/18 09:00 12/30/18 08:59 11/30/18 08:41 Clonidine HCl (Catapres Tab) 0.1 mg Q4H PRN ORAL bp over 165 syst & 100 diastol 11/29/18 12:30 12/29/18 12:29 11/29/18 16:27 Dextrose (Dextrose 50%) 25 ml Q30M PRN IV Hypoglycemia 11/29/18 18:45 12/29/18 18:44 Dextrose (Dextrose 50%) 50 ml Q30M PRN IV Hypoglycemia 11/29/18 18:45 12/29/18 18:44 Finasteride (Proscar) 5 mg DAILY ORAL 11/29/18 09:00 12/29/18 08:59 11/30/18 08:41 Gabapentin (Neurontin) 300 mg TID ORAL 11/30/18 00:00 12/29/18 00:00 11/30/18 08:41 Hydromorphone HCl (Dilaudid) 1 mg Q4H PRN IVP For Pain 11/29/18 23:15 12/06/18 23:14 11/30/18 05:29 Insulin Aspart (NovoLOG) AC+HS SUBQ 11/29/18 21:00 12/29/18 11:29 11/30/18 06:28 Insulin Detemir (Levemir) 20 units BEDTIME SUBQ 11/29/18 21:00 12/29/18 20:59 11/29/18 21:14 Nateglinide (Starlix) 120 mg TIAC ORAL 11/29/18 16:30 12/29/18 16:29 11/30/18 06:32 Pantoprazole (Protonix) 40 mg BID ORAL 11/29/18 18:00 12/29/18 08:59 11/30/18 08:41 Sodium Chloride 1,000 ml @ 50 mls/hr Q20H IV 11/29/18 12:30 12/29/18 12:29 11/30/18 08:41 Tamsulosin HCl (Flomax) 0.4 mg BID ORAL 11/29/18 18:00 12/29/18 17:59 11/30/18 08:41 Assessment/Plan Assessment/Plan: (1) CVA (2) Thalamic pain syndrome (3) Headache (4) Cocaine abuse seen dictated Thai Conway Nov 30, 2018 09:02
--- NOTE | 2018-11-30 10:10 | NUR ---
*-* NO INSURANCE INFORMATION UNABLE TO SEND CLINICALS OR REVIEWS *-*
--- NOTE | 2018-11-30 11:07 | NUR ---
*-* INSURANCE *-* UPDATED CLINICALS AND REVIEWS HAVE BEEN FAXED TO: [[facility]] CLINICALS TO BE FAXED AT [phone]
--- NOTE | 2018-11-30 11:39 | NUR ---
CASE MANAGEMENT:REVIEW 11/30/18 SI: LATE SUBACUTE INFARCT URINE(+) COCAINE 98.2 65 20 160/86 100% ON RA IS: ASA PO QD NEURONTIN PO TID LEVEMIR SQ QHS PROTONIX PO BID FLOMAX PO BID NORVASC PO BID IV DILAUDID Q4HRS PRN : TELEMETRY STATUS PLAN: MRI BRAIN MRA HEAD AND NECK
[2018-11-30 11:51] LABS: BASOPHILS % (AUTO) 1.2 % (0.0-2.0); EOSINOPHILS % (AUTO) 0.3 % (0.0-3.0); HEMATOCRIT 40.7 % (42.0-52.0); HEMOGLOBIN 14.1 G/DL (14.2-18.0); LYMPHOCYTES % (AUTO) 25.1 % (20.0-45.0); MEAN CORPUSCULAR VOLUME 82 FL (80-99); MONOCYTES % (AUTO) 7.1 % (1.0-10.0); NEUTROPHILS % (AUTO) 66.4 % (45.0-75.0); PLATELET COUNT 328 K/UL (150-450); RED BLOOD COUNT 4.94 M/UL (4.70-6.10); RED CELL DISTRIBUTION WIDTH 10.4 % (11.6-14.8)
--- NOTE | 2018-11-30 12:18 | NUR ---
NURSE NOTES: Patient reports nausea. NO Prn. Dr. Romero notified. New order received.
--- NOTE | 2018-11-30 12:30 | Consultation ---
DATE OF CONSULTATION: 11/30/2018 PAIN MANAGEMENT CONSULTATION CONSULTING PHYSICIAN: Mack Mullins M.D. REFERRING PHYSICIAN: Erin Romero M.D. PHYSICIAN BUS ANALYST: Malcolm Carr CHIEF COMPLAINT: Headache. HISTORY OF PRESENT ILLNESS: This is a 63-year-old male, who is being seen on the telemetry floor of [facility] for initial pain management consultation. The patient was admitted under the care of Dr. Romero due to stroke-like symptoms. Reporting that he has been having headaches for the past two days. It is a constant, acute pain, rating at 10/10. Describing the pain as a sharp pain, increased with air and reduced with the medication. He stated he had had a CVA in the past. Upon admission, CT scan of the brain was ordered showing the patient having late subacute versus old right posterior cerebral artery distribution infarct, other chronic and age-related changes, negative for acute intracranial bleed or mass effect. At this time, he has been seen by a neurologist. MRI of the brain was ordered to rule out stroke and had been complaining of severe headaches. Dr. Mullins started the patient on a Dilaudid 1 mg IV every 4 hours as needed for severe pain and Neurontin 300 mg three times a day. At this time, the patient continues to have pain, which he rates at 10/10. However, is reduced with Dilaudid, which he has received two doses within the last 24 hours from a 10 to 2/10. We were consulted so that the patient would have adequate pain control while here in the hospital. PAST MEDICAL HISTORY: History of CVA, hypertension, BPH, diabetes mellitus, and hyperlipidemia. PAST SURGICAL HISTORY: Denies. SOCIAL HISTORY: History of smoking tobacco, history of alcohol abuse, and drug abuse. ALLERGIES: No known drug allergies. MEDICATIONS: Lisinopril, Norvasc, and metformin. REVIEW OF SYSTEMS: Denies rash, fever, chills, sweating, dizziness, drowsiness, blurred vision, sore throat, change in hearing or weight. No nausea, vomiting, diarrhea, or blood in the stool or urine. No bowel or bladder incontinence. No dysuria. He is complaining of headaches for the past two days. PHYSICAL EXAMINATION: GENERAL: Alert, awake, and oriented. VITAL SIGNS: Blood pressure 178/80, heart rate is 62, oxygen saturation 96%, respiratory rate 17, and temperature is 97.8 degrees Fahrenheit. HEENT: PERRLA. NECK: Range of motion is full in all directions. No tenderness to paracervical muscles. No adenopathy. LUNGS: Decreased breath sounds bilaterally. HEART: S1 and S2 regular. ABDOMEN: Soft, nontender. EXTREMITIES: Upper and lower extremity motion is decreased due to the patient's condition. No cyanosis. No clubbing. Sensory is reduced. Reflexes are not obtainable. No adenopathy. ASSESSMENT AND PLAN: This is a 63-year-old male with CVA, thalamic pain syndrome, headache, cocaine abuse. The patient will be continued on Dilaudid and Neurontin. The patient was discussed with Dr. Mullins and Dr. Mullins concurred. We will follow the patient. Thank you very much for the courtesy of this consultation. Mack Mullins M.D. RIO Carr DR: AYO JOB#: [id number] CC: KATHARINA
[2018-11-30 12:42] LABS: ALANINE AMINOTRANSFERASE 14 U/L (12-78); ALBUMIN 2.9 G/DL (3.4-5.0); ALBUMIN/GLOBULIN RATIO 0.8 (1.0-2.7); ALKALINE PHOSPHATASE 123 U/L (46-116); ANION GAP 10 mmol/L (5-15); ASPARTATE AMINO TRANSFERASE 14 U/L (15-37); BILIRUBIN,TOTAL 0.5 MG/DL (0.2-1.0); BLOOD UREA NITROGEN 10 mg/dL (7-18); CALCIUM 8.6 MG/DL (8.5-10.1); CARBON DIOXIDE 24 MMOL/L (21-32); CHLORIDE 104 MMOL/L (98-107); CHOLESTEROL 139 MG/DL (< 200); CREATINE KINASE 52 U/L (26-308); CREATININE 1.3 MG/DL (0.55-1.30); GAMMA GLUTAMYL TRANSPEPTIDASE 16 U/L (5-85); HDL CHOLESTEROL 50 MG/DL (40-60); PHOSPHORUS 3.4 MG/DL (2.5-4.9); POTASSIUM 3.3 MMOL/L (3.5-5.1); SODIUM 138 MMOL/L (136-145); TRIGLYCERIDES 83 MG/DL (30-150)
--- NOTE | 2018-11-30 14:03 | CDS Physician Query ---
Clarification is required for compliance, coding accuracy, and to reflect severity of illness for this patient Dear Dr. Manan Amezcua Date: 11/30/2018 Quality Control Lab Tech/CDS Name: Nicki Hill Clinical documetation states: 63-year-old male with a history of high blood pressure. He presents with chief complaint of a headache for the last 5 hours. He said his blood pressure is high...Assessment/Plan: HTN OOC...CVA...BP control BP on admission: 204.110 Please Clarify the specific type of hypertension: [+] Hypertensive Emergency [] Hypertensive Urgency [] Essential Hypertension [] Other: Present on Admission: [+] Yes [] No [] Clinically Undetermined Physician signature Date Please also document in your Progress Notes and/or Discharge Summary and indicate if the condition was present on admission. KATHARINA
--- NOTE | 2018-11-30 14:03 | NUR ---
11/30 13:35 CONCERNING MRI STUDIES...PT BP UNSTABLE, VERY HIGH, PER KALE VOGEL. PT ALSO CAN NOT LAY FLAT W/O THE NEED TO SIT UP AND VOMIT. PT HAS A SEVERE HEADACHE. PAGE
--- NOTE | 2018-11-30 16:05 | NUR ---
P.T Note: P.T attempted however patient declined to participate due to c/o severe headache aggravated by activity -03/22. RN notified/aware. Will reattempt tomorrow.
--- NOTE | 2018-11-30 16:38 | Nephrology Progress Note ---
Assessment/Plan Problem List: (1) Diabetic nephropathy (2) Hypertension (3) Diabetes mellitus out of control (4) CVA (cerebral vascular accident) (5) Cocaine abuse Assessment HTN OOC Cocaine abuse CVA High Chol Proteinuria- DM Plan BP control add Hydralazine to norvasc BS control no beta blockers ( cocaine abuse0 check labs, chol.... per orders Objective Objective Last 24 Hour Vital Signs Date Time Temp Pulse Resp B/P (MAP) Pulse Ox O2 Delivery O2 Flow Rate FiO2 11/30/18 14:54 66 166/92 (116) 11/30/18 12:40 195/103 11/30/18 12:00 71 11/30/18 12:00 97.6 76 18 168/89 (115) 98 11/30/18 09:00 Room Air 11/30/18 08:41 65 160/86 11/30/18 08:00 66 11/30/18 08:00 98.2 65 20 160/86 (110) 100 11/30/18 04:00 97.8 62 17 178/80 (112) 96 11/30/18 04:00 62 11/30/18 03:19 62 11/30/18 00:00 97.4 65 18 165/75 (105) 96 11/30/18 00:00 70 11/29/18 21:00 Room Air 11/29/18 20:00 97.5 80 18 118/68 (85) 100 11/29/18 19:40 74 11/29/18 17:05 71 174/100 11/29/18 16:50 152/95 (114) Intake and Output 11/29/18 11/30/18 18:59 06:59 Intake Total 1050 ml 537 ml Output Total 200 ml 300 ml Balance 850 ml 237 ml Intake Oral 450 ml IV Total 600 ml 537 ml Output Urine Total 200 ml 300 ml # Voids 3 1 # Bowel Movements 1 Laboratory Tests 11/30/18 11:30: White Blood Count 7.0, Red Blood Count 4.94, Hemoglobin 14.1L, Hematocrit 40.7L , Mean Corpuscular Volume 82, Mean Corpuscular Hemoglobin 28.5, Mean Corpuscular Hemoglobin Concent 34.6, Red Cell Distribution Width 10.4L, Platelet Count 328, Mean Platelet Volume 6.6, Neutrophils (%) (Auto) 66.4, Lymphocytes (%) (Auto) 25.1, Monocytes (%) (Auto) 7.1, Eosinophils (%) (Auto) 0.3, Basophils (%) (Auto) 1.2, Sodium Level 138, Potassium Level 3.3L, Chloride Level 104, Carbon Dioxide Level 24, Anion Gap 10, Blood Urea Nitrogen 10, Creatinine 1.3, Estimat Glomerular Filtration Rate > 60, Glucose Level 176#H, Hemoglobin A1c 9.0H, Uric Acid 4.1, Calcium Level 8.6, Phosphorus Level 3.4, Magnesium Level 1.7L, Total Bilirubin 0.5, Gamma Glutamyl Transpeptidase 16, Aspartate Amino Transf (AST/SGOT) 14L, Alanine Aminotransferase (ALT/SGPT) 14, Alkaline Phosphatase 123H, Total Creatine Kinase 52, Troponin I 0.022, C- Reactive Protein, Quantitative 1.5H, Pro-B-Type Natriuretic Peptide 513H, Total Protein 6.4, Albumin 2.9L, Globulin 3.5, Albumin/Globulin Ratio 0.8L, Triglycerides Level 83, Cholesterol Level 139, LDL Cholesterol 74, HDL Cholesterol 50, Cholesterol/HDL Ratio 2.8L, Vitamin B12 Level 371, Thyroid Stimulating Hormone (TSH) 1.820 Height (Feet): 5 Height (Inches): 11.00 Weight (Pounds): 219 Manan Amezcua MD Nov 30, 2018 16:38
--- NOTE | 2018-11-30 18:40 | Cardiology Report ---
APPROVED REPORT EXAM: Two-dimensional and M-mode echocardiogram with Doppler and color Doppler. INDICATION Congestive Heart Failure M-Mode DIMENSIONS IVSd1.1 (0.7-1.1cm)Left Atrium (MM)4.2 (1.6-4.0cm) LVDd3.7 (3.5-5.6cm)Aortic Root3.6 (2.0-3.7cm) PWd1.1 (0.7-1.1cm)Aortic Cusp Exc.2.1 (1.5-2.0cm) IVSs1.5 cm LVDs2.4 (2.5-4.0cm) PWs1.3 cm Normal left ventricular chamber size, systolic function and wall motion Left ventricular ejection fraction estimated to be 60%. Mild left ventricular hypertrophy by 2-D. No evidence of pericardial effusion. Mild left atrial enlargement . Right cardiac chamber sizes are within normal limits. Aortic valve calcification with normal cusp excursion . Mildly thickened mitral valve leaflets with normal excursion. Mild mitral annulus and aortic root calcification. Pulmonic valve not well visualized. IVC at normal size with physiologic collapse. A color flow and spectral Doppler study was performed and revealed: No aortic insufficiency . Mitral diastolic velocities suggest reduced left ventricular relaxation c/w mild LV diastolic dysfunction (Grade I ) Trace mitral regurgitation. Mild tricuspid regurgitation. Tricuspid systolic velocities suggests peak right ventricular systolic pressure of 37mmHg,consistent with mild pulmonary HTN.
--- NOTE | 2018-11-30 19:16 | Cardiology Report ---
APPROVED REPORT EKG Measurement Heart [id number] Normal sinus rhythm Nonspecific T wave abnormality Abnormal ECG
--- NOTE | 2018-11-30 19:24 | NUR ---
HAND-OFF: Report given to KALE Rodgers.
--- NOTE | 2018-11-30 19:56 | NUR ---
NURSE NOTES: Received pt and report from KALE Gaffney. Observed pt resting in bed with both eyes closed. senior net architect is in placed, IV site intact, asymptomatic, and patent. Bed is in the lowest position and locked. Call light within reach. No signs/symptoms of acute distress noted at this time. Will continue plan of care.
[2018-11-30] MEDS: HydrALAZINE 25mg tab ORAL SCH (21:13)
[2018-11-30] MEDS: Levemir Flexpen SUBQ SCH (21:14)
--- NOTE | 2018-11-30 21:42 | General Progress Note ---
Assessment/Plan Problem List: (1) Hypertension ICD Codes: I10 - Essential (primary) hypertension SNOMED: 86564214 Qualifiers: Qualified Codes: I10 - Essential (primary) hypertension (2) Diabetes mellitus out of control ICD Codes: E11.65 - Type 2 diabetes mellitus with hyperglycemia SNOMED: 99592727, 384010094 (3) CVA (cerebral vascular accident) ICD Codes: I63.9 - Cerebral infarction, unspecified SNOMED: 406251909 Qualifiers: Qualified Codes: I63.9 - Cerebral infarction, unspecified Status: stable Assessment/Plan: r/o tia htn dm high risk reviewed chart and labs Subjective ROS Limited/Unobtainable: Yes Allergies: Coded Allergies: No Known Allergies (Unverified , 11/29/18) Objective Last 24 Hour Vital Signs Date Time Temp Pulse Resp B/P (MAP) Pulse Ox O2 Delivery O2 Flow Rate FiO2 11/30/18 21:13 186/86 11/30/18 18:21 164/88 11/30/18 17:19 71 169/81 11/30/18 16:00 71 11/30/18 16:00 97.8 68 20 169/81 (110) 96 11/30/18 14:54 66 166/92 (116) 11/30/18 12:40 195/103 11/30/18 12:00 71 11/30/18 12:00 97.6 76 18 168/89 (115) 98 11/30/18 09:00 Room Air 11/30/18 08:41 65 160/86 11/30/18 08:00 66 11/30/18 08:00 98.2 65 20 160/86 (110) 100 11/30/18 04:00 97.8 62 17 178/80 (112) 96 11/30/18 04:00 62 11/30/18 03:19 62 11/30/18 00:00 97.4 65 18 165/75 (105) 96 11/30/18 00:00 70 Intake and Output 11/29/18 11/30/18 19:00 07:00 Intake Total 1050 ml 657 ml Output Total 200 ml 300 ml Balance 850 ml 357 ml Intake Oral 450 ml 120 ml IV Total 600 ml 537 ml Output Urine Total 200 ml 300 ml # Voids 3 1 # Bowel Movements 1 Laboratory Tests 11/30/18 11:30: White Blood Count 7.0, Red Blood Count 4.94, Hemoglobin 14.1L, Hematocrit 40.7L , Mean Corpuscular Volume 82, Mean Corpuscular Hemoglobin 28.5, Mean Corpuscular Hemoglobin Concent 34.6, Red Cell Distribution Width 10.4L, Platelet Count 328, Mean Platelet Volume 6.6, Neutrophils (%) (Auto) 66.4, Lymphocytes (%) (Auto) 25.1, Monocytes (%) (Auto) 7.1, Eosinophils (%) (Auto) 0.3, Basophils (%) (Auto) 1.2, Sodium Level 138, Potassium Level 3.3L, Chloride Level 104, Carbon Dioxide Level 24, Anion Gap 10, Blood Urea Nitrogen 10, Creatinine 1.3, Estimat Glomerular Filtration Rate > 60, Glucose Level 176#H, Hemoglobin A1c 9.0H, Uric Acid 4.1, Calcium Level 8.6, Phosphorus Level 3.4, Magnesium Level 1.7L, Total Bilirubin 0.5, Gamma Glutamyl Transpeptidase 16, Aspartate Amino Transf (AST/SGOT) 14L, Alanine Aminotransferase (ALT/SGPT) 14, Alkaline Phosphatase 123H, Total Creatine Kinase 52, Troponin I 0.022, C- Reactive Protein, Quantitative 1.5H, Pro-B-Type Natriuretic Peptide 513H, Total Protein 6.4, Albumin 2.9L, Globulin 3.5, Albumin/Globulin Ratio 0.8L, Triglycerides Level 83, Cholesterol Level 139, LDL Cholesterol 74, HDL Cholesterol 50, Cholesterol/HDL Ratio 2.8L, Vitamin B12 Level 371, Thyroid Stimulating Hormone (TSH) 1.820 Height (Feet): 5 Height (Inches): 11.00 Weight (Pounds): 219 Cardiovascular: normal rate Respiratory/Chest: lungs clear Erin Romero MD Nov 30, 2018 21:42
--- NOTE | 2018-11-30 23:12 | Diagnostic Imaging Report ---
APPROVED REPORT CPT Code: 48027 Present Symptoms Comments: Screening Back pain BILATERAL: Imaging reveals a patent deep venous system bilaterally. There is no evidence of thrombus within the common femoral, superficial femoral, popliteal or tibial segments. The greater saphenous veins are within normal limits. Doppler indicates normal spontaneous flow within these segments.
[2018-12-01] VITALS (7 sets, daily range): BP systolic 157–178; BP diastolic 76–95
[2018-12-01] MEDS: HYDROmorphone 1mg/ml Carpuject IVP PRN ×5 (01:36→20:30)
[2018-12-01] MEDS: NovoLOG Insulin Flexpen SUBQ SCH ×4 (05:44→20:40)
[2018-12-01] MEDS: HydrALAZINE 25mg tab ORAL SCH (05:50)
--- NOTE | 2018-12-01 06:55 | General Progress Note ---
Assessment/Plan Problem List: (1) Diabetes mellitus out of control ICD Codes: E11.65 - Type 2 diabetes mellitus with hyperglycemia SNOMED: 63641715, 720522283 (2) CVA (cerebral vascular accident) ICD Codes: I63.9 - Cerebral infarction, unspecified SNOMED: 539186697 Qualifiers: Qualified Codes: I63.9 - Cerebral infarction, unspecified (3) Hypertension ICD Codes: I10 - Essential (primary) hypertension SNOMED: 62605897 Qualifiers: Qualified Codes: I10 - Essential (primary) hypertension (4) Cocaine abuse ICD Codes: F14.10 - Cocaine abuse, uncomplicated SNOMED: 79728183 Status: stable Assessment/Plan: continue Levemir 20 units qhs continue Starlix 120 mg ac tid continue NISS ac / hs Subjective Allergies: Coded Allergies: No Known Allergies (Unverified , 11/29/18) All Systems: reviewed and negative except above Subjective events noted Item Value Date Time Bedside Blood Glucose 128 mg/dl H 12/01/18 0630 Bedside Blood Glucose 193 mg/dl H 11/30/18 2115 Bedside Blood Glucose 221 mg/dl H 11/30/18 1720 Bedside Blood Glucose 159 mg/dl H 11/30/18 1235 Bedside Blood Glucose 138 mg/dl H 11/30/18 0628 Bedside Blood Glucose 122 mg/dl H 11/30/18 0000 Objective Last 24 Hour Vital Signs Date Time Temp Pulse Resp B/P (MAP) Pulse Ox O2 Delivery O2 Flow Rate FiO2 12/01/18 05:50 168/96 12/01/18 04:00 66 12/01/18 04:00 98.3 72 18 168/85 (112) 97 12/01/18 01:36 178/95 12/01/18 00:00 98.1 70 18 178/95 (122) 97 12/01/18 00:00 69 11/30/18 21:13 186/86 11/30/18 21:00 Room Air 11/30/18 20:00 97.3 86 20 175/98 (123) 95 11/30/18 20:00 74 11/30/18 18:21 164/88 11/30/18 17:19 71 169/81 11/30/18 16:00 71 11/30/18 16:00 97.8 68 20 169/81 (110) 96 11/30/18 14:54 66 166/92 (116) 11/30/18 12:40 195/103 11/30/18 12:00 71 11/30/18 12:00 97.6 76 18 168/89 (115) 98 11/30/18 09:00 Room Air 11/30/18 08:41 65 160/86 11/30/18 08:00 66 11/30/18 08:00 98.2 65 20 160/86 (110) 100 Intake and Output 11/30/18 12/01/18 19:00 07:00 Intake Total 540 ml 400 ml Output Total 450 ml Balance 90 ml 400 ml Intake Oral 140 ml IV Total 400 ml 400 ml Output Urine Total 450 ml Laboratory Tests 11/30/18 11:30: White Blood Count 7.0, Red Blood Count 4.94, Hemoglobin 14.1L, Hematocrit 40.7L , Mean Corpuscular Volume 82, Mean Corpuscular Hemoglobin 28.5, Mean Corpuscular Hemoglobin Concent 34.6, Red Cell Distribution Width 10.4L, Platelet Count 328, Mean Platelet Volume 6.6, Neutrophils (%) (Auto) 66.4, Lymphocytes (%) (Auto) 25.1, Monocytes (%) (Auto) 7.1, Eosinophils (%) (Auto) 0.3, Basophils (%) (Auto) 1.2, Sodium Level 138, Potassium Level 3.3L, Chloride Level 104, Carbon Dioxide Level 24, Anion Gap 10, Blood Urea Nitrogen 10, Creatinine 1.3, Estimat Glomerular Filtration Rate > 60, Glucose Level 176#H, Hemoglobin A1c 9.0H, Uric Acid 4.1, Calcium Level 8.6, Phosphorus Level 3.4, Magnesium Level 1.7L, Total Bilirubin 0.5, Gamma Glutamyl Transpeptidase 16, Aspartate Amino Transf (AST/SGOT) 14L, Alanine Aminotransferase (ALT/SGPT) 14, Alkaline Phosphatase 123H, Total Creatine Kinase 52, Troponin I 0.022, C- Reactive Protein, Quantitative 1.5H, Pro-B-Type Natriuretic Peptide 513H, Total Protein 6.4, Albumin 2.9L, Globulin 3.5, Albumin/Globulin Ratio 0.8L, Triglycerides Level 83, Cholesterol Level 139, LDL Cholesterol 74, HDL Cholesterol 50, Cholesterol/HDL Ratio 2.8L, Vitamin B12 Level 371, Thyroid Stimulating Hormone (TSH) 1.820 12/01/18 04:50: Sodium Level [Pending], Potassium Level [Pending], Chloride Level [Pending], Carbon Dioxide Level [Pending], Blood Urea Nitrogen [Pending], Creatinine [ Pending], Estimat Glomerular Filtration Rate [Pending], Glucose Level [Pending] , Calcium Level [Pending], Phosphorus Level [Pending], Magnesium Level [Pending] , Total Bilirubin [Pending], Aspartate Amino Transf (AST/SGOT) [Pending], Alanine Aminotransferase (ALT/SGPT) [Pending], Alkaline Phosphatase [Pending], Total Protein [Pending], Albumin [Pending], Globulin [Pending], Folate [Pending] Height (Feet): 5 Height (Inches): 11.00 Weight (Pounds): 219 General Appearance: no apparent distress Neck: normal alignment Cardiovascular: normal rate Respiratory/Chest: lungs clear Abdomen: normal bowel sounds Pelvis: normal external exam Objective Current Medications Medications (Trade) Dose Ordered Sig/Jessie Route PRN Reason Start Time Stop Time Status Last Admin Dose Admin Acetaminophen (Tylenol) 500 mg Q4H PRN ORAL Mild Pain/Temp > 100.5 11/29/18 06:30 12/29/18 06:29 11/29/18 20:55 Amlodipine Besylate (Norvasc) 5 mg BID ORAL 11/29/18 18:00 12/29/18 17:59 11/30/18 17:19 Aspirin (ASA) 81 mg DAILY ORAL 11/30/18 09:00 12/30/18 08:59 11/30/18 08:41 Clonidine HCl (Catapres Tab) 0.1 mg Q4H PRN ORAL bp over 165 syst & 100 diastol 11/29/18 12:30 12/29/18 12:29 12/01/18 01:36 Dextrose (Dextrose 50%) 25 ml Q30M PRN IV Hypoglycemia 11/29/18 18:45 12/29/18 18:44 Dextrose (Dextrose 50%) 50 ml Q30M PRN IV Hypoglycemia 11/29/18 18:45 12/29/18 18:44 Finasteride (Proscar) 5 mg DAILY ORAL 11/29/18 09:00 12/29/18 08:59 11/30/18 08:41 Gabapentin (Neurontin) 300 mg TID ORAL 11/30/18 00:00 12/29/18 00:00 11/30/18 17:19 Hydralazine HCl (Apresoline) 25 mg Q8HR ORAL 11/30/18 22:00 12/30/18 21:59 12/01/18 05:50 Hydromorphone HCl (Dilaudid) 1 mg Q4H PRN IVP For Pain 11/29/18 23:15 12/06/18 23:14 12/01/18 05:43 Insulin Aspart (NovoLOG) AC+HS SUBQ 11/29/18 21:00 12/29/18 11:29 12/01/18 05:44 Insulin Detemir (Levemir) 20 units BEDTIME SUBQ 11/29/18 21:00 12/29/18 20:59 11/30/18 21:14 Nateglinide (Starlix) 120 mg TIAC ORAL 11/29/18 16:30 12/29/18 16:29 12/01/18 05:42 Ondansetron HCl (Zofran) 4 mg Q6H PRN IVP Nausea & Vomiting 11/30/18 12:30 12/30/18 12:29 11/30/18 12:37 Pantoprazole (Protonix) 40 mg BID ORAL 11/29/18 18:00 12/29/18 08:59 11/30/18 17:19 Potassium Chloride (K-Dur) 20 meq TWICE A DAY ORAL 11/30/18 16:45 12/30/18 16:44 11/30/18 18:21 Sodium Chloride 1,000 ml @ 50 mls/hr Q20H IV 11/29/18 12:30 12/29/18 12:29 12/01/18 04:22 Tamsulosin HCl (Flomax) 0.4 mg BID ORAL 11/29/18 18:00 12/29/18 17:59 11/30/18 17:18 Devin Velasco MD Dec 01, 2018 06:55
--- NOTE | 2018-12-01 07:05 | NUR ---
NURSE NOTES: Received pt and report from KALE Mann. Patient is resting in bed. Patient is AAO x 4. Patient denies pain. patient is breathing on room air and no respiratory distress noted. doughmaker is in placed, IV site intact, asymptomatic, and patent. Bed is in the lowest position and locked. Call light within reach. No signs/symptoms of acute distress noted at this time. Will continue plan of care. Addendum: 12/01/18 at 0753 by Javier Ontiveros RN Wrong patient.
[2018-12-01 07:33] LABS: ALANINE AMINOTRANSFERASE 17 U/L (12-78); ALBUMIN 2.6 G/DL (3.4-5.0); ALBUMIN/GLOBULIN RATIO 0.7 (1.0-2.7); ALKALINE PHOSPHATASE 124 U/L (46-116); ANION GAP 11 mmol/L (5-15); ASPARTATE AMINO TRANSFERASE 13 U/L (15-37); BILIRUBIN,TOTAL 0.6 MG/DL (0.2-1.0); BLOOD UREA NITROGEN 10 mg/dL (7-18); CALCIUM 8.7 MG/DL (8.5-10.1); CARBON DIOXIDE 24 MMOL/L (21-32); CHLORIDE 106 MMOL/L (98-107); CREATININE 1.2 MG/DL (0.55-1.30); PHOSPHORUS 3.3 MG/DL (2.5-4.9); POTASSIUM 3.9 MMOL/L (3.5-5.1); SODIUM 141 MMOL/L (136-145)
--- NOTE | 2018-12-01 07:52 | NUR ---
HAND-OFF: Report given to KALE Bernal.
--- NOTE | 2018-12-01 08:17 | NUR ---
NURSE NOTES: received report from Ana Maria HENLEY. Pt on court recording monitor no signs of distress. Pt is about to have breakfast. Bed locked and in lowest position. Call light within reach. Will continue to follow plan of care.
--- NOTE | 2018-12-01 08:49 | General Progress Note ---
Assessment/Plan Assessment/Plan: (1) CVA (2) Thalamic pain syndrome (3) Headache (4) Cocaine abuse Pt will be continued on Dilaudid and Neurontin D/w Dr. Mullins and he concurred. Subjective Date patient seen: Dec 01, 2018 Time patient seen: 07:45 - am Allergies: Coded Allergies: No Known Allergies (Unverified , 11/29/18) Subjective REVIEW OF SYSTEMS: Denies rash, fever, chills, sweating, dizziness, drowsiness, blurred vision, sore throat, change in hearing or weight. No nausea, vomiting, diarrhea, or blood in the stool or urine. No bowel or bladder incontinence. No dysuria. He is complaining of headaches for the past two days. SUBJECTIVE: Patient is in bed c/o pain which is severe at times. The pain has been tolerated on the Dilaudid 6 doses in the last 24hrs. Waiting to perform MRIs as per neurologist. Objective Last 24 Hour Vital Signs Date Time Temp Pulse Resp B/P (MAP) Pulse Ox O2 Delivery O2 Flow Rate FiO2 12/01/18 05:50 168/96 12/01/18 04:00 66 12/01/18 04:00 98.3 72 18 168/85 (112) 97 12/01/18 01:36 178/95 12/01/18 00:00 98.1 70 18 178/95 (122) 97 12/01/18 00:00 69 11/30/18 21:13 186/86 11/30/18 21:00 Room Air 11/30/18 20:00 97.3 86 20 175/98 (123) 95 11/30/18 20:00 74 11/30/18 18:21 164/88 11/30/18 17:19 71 169/81 11/30/18 16:00 71 11/30/18 16:00 97.8 68 20 169/81 (110) 96 11/30/18 14:54 66 166/92 (116) 11/30/18 12:40 195/103 11/30/18 12:00 71 11/30/18 12:00 97.6 76 18 168/89 (115) 98 11/30/18 09:00 Room Air Intake and Output 11/30/18 12/01/18 19:00 07:00 Intake Total 540 ml 550 ml Output Total 450 ml Balance 90 ml 550 ml Intake Oral 140 ml IV Total 400 ml 550 ml Output Urine Total 450 ml Laboratory Tests 11/30/18 11:30: White Blood Count 7.0, Red Blood Count 4.94, Hemoglobin 14.1L, Hematocrit 40.7L , Mean Corpuscular Volume 82, Mean Corpuscular Hemoglobin 28.5, Mean Corpuscular Hemoglobin Concent 34.6, Red Cell Distribution Width 10.4L, Platelet Count 328, Mean Platelet Volume 6.6, Neutrophils (%) (Auto) 66.4, Lymphocytes (%) (Auto) 25.1, Monocytes (%) (Auto) 7.1, Eosinophils (%) (Auto) 0.3, Basophils (%) (Auto) 1.2, Sodium Level 138, Potassium Level 3.3L, Chloride Level 104, Carbon Dioxide Level 24, Anion Gap 10, Blood Urea Nitrogen 10, Creatinine 1.3, Estimat Glomerular Filtration Rate > 60, Glucose Level 176#H, Hemoglobin A1c 9.0H, Uric Acid 4.1, Calcium Level 8.6, Phosphorus Level 3.4, Magnesium Level 1.7L, Total Bilirubin 0.5, Gamma Glutamyl Transpeptidase 16, Aspartate Amino Transf (AST/SGOT) 14L, Alanine Aminotransferase (ALT/SGPT) 14, Alkaline Phosphatase 123H, Total Creatine Kinase 52, Troponin I 0.022, C- Reactive Protein, Quantitative 1.5H, Pro-B-Type Natriuretic Peptide 513H, Total Protein 6.4, Albumin 2.9L, Globulin 3.5, Albumin/Globulin Ratio 0.8L, Triglycerides Level 83, Cholesterol Level 139, LDL Cholesterol 74, HDL Cholesterol 50, Cholesterol/HDL Ratio 2.8L, Vitamin B12 Level 371, Thyroid Stimulating Hormone (TSH) 1.820 12/01/18 04:50: Sodium Level 141, Potassium Level 3.9, Chloride Level 106, Carbon Dioxide Level 24, Anion Gap 11, Blood Urea Nitrogen 10, Creatinine 1.2, Estimat Glomerular Filtration Rate > 60, Glucose Level 117H, Calcium Level 8.7, Phosphorus Level 3.3, Magnesium Level 2.1, Total Bilirubin 0.6, Aspartate Amino Transf (AST/SGOT ) 13L, Alanine Aminotransferase (ALT/SGPT) 17, Alkaline Phosphatase 124H, Total Protein 6.5, Albumin 2.6L, Globulin 3.9, Albumin/Globulin Ratio 0.7L, Folate 19.1 Height (Feet): 5 Height (Inches): 11.00 Weight (Pounds): 219 Objective GENERAL: Alert, awake, and oriented. LUNGS: Decreased breath sounds bilaterally. HEART: S1 and S2 regular. ABDOMEN: Soft, nontender. EXTREMITIES: No cyanosis. No clubbing. NEURO: No changes. Thai Conway Dec 01, 2018 08:49
--- NOTE | 2018-12-01 09:10 | NUR ---
NURSE NOTES: notified Dr. Palomo about pt high b/p 173/89. per doctor Stacia instruction Dr. Amezcua was notified as well.
[2018-12-01] MEDS: Tamsulosin 0.4mg cap ORAL SCH ×2 (09:19→17:36)
[2018-12-01] MEDS: Aspirin Baby 81mg ORAL SCH (09:20)
[2018-12-01] MEDS ORDERED: Lisinopril 10mg tab ORAL SCH (09:30)
--- NOTE | 2018-12-01 09:39 | NUR ---
CASE MANAGEMENT:REVIEW 12/01/18 SI: LATE SUBACUTE INFARCT URINE(+) COCAINE 98.3 68 20 173/89 97% ON RA IS: HYDRALAZINE PO Q8HRS (ADDED) LISINOPRIL PO QD (ADDED) ASA PO QD NEURONTIN PO TID LEVEMIR SQ QHS PROTONIX PO BID FLOMAX PO BID NORVASC PO BID IV DILAUDID Q4HRS PRN : TELEMETRY STATUS PLAN: MRI BRAIN ~ RESULTS PENDING MRA HEAD AND NECK ~ RESULTS PENDING
--- NOTE | 2018-12-01 12:43 | NUR ---
*-* INSURANCE *-* UPDATED CLINICALS AND REVIEWS HAVE BEEN FAXED TO: [[facility]] CLINICALS TO BE FAXED AT [phone]
--- NOTE | 2018-12-01 13:06 | NUR ---
MRI/MRA BRAIN COMPLETED. PT UNABLE TO STAY LAYING FLAT FOR MRA NECK, BECAME NAUSEOUS. PT CREATININE LEVELS ARE AT 1.2, WE SUGGESTED TO CHERIN N.P. VIA VOICEMAIL THAT MAYBE A CTA NECK WITH CONTRAST WILL WORK BETTER BECAUSE THE PT DOES NOT HAVE TO LAY COMPLETELY FLAT, AND THE EXAM IS MUCH FASTER. PAGE/KEMAL 13:11
--- NOTE | 2018-12-01 13:28 | Neurology Progress Note ---
Interim History Interim History ROS Limited/Unobtainable: Yes Complaints: CVA -Acute/Subacute Events: Labile BP- not stable to be off Telemetry Interim History This visit was performed with Dr. Ramon Harvey on December 01, 2018. Review of Systems Neuro Review of Systems BP and headache remain elevated - MRI showing acute stroke with partial hemorrhagic transformation (petechial hemorrhage) and ongoing headache All Systems: reviewed and negative except above Objective Physical Exam Last Vital Signs Date Time Temp Pulse Resp B/P (MAP) Pulse Ox O2 Delivery O2 Flow Rate FiO2 12/01/18 10:10 187/87 12/01/18 09:19 68 12/01/18 08:00 98.3 20 97 11/30/18 21:00 Room Air Laboratory Tests Test 12/01/18 04:50 Sodium Level 141 MMOL/L (136-145) Potassium Level 3.9 MMOL/L (3.5-5.1) Chloride Level 106 MMOL/L (98-107) Carbon Dioxide Level 24 MMOL/L (21-32) Anion Gap 11 mmol/L (5-15) Blood Urea Nitrogen 10 mg/dL (7-18) Creatinine 1.2 MG/DL (0.55-1.30) Estimat Glomerular Filtration Rate > 60 mL/min (>60) Glucose Level 117 MG/DL (74-106) H Calcium Level 8.7 MG/DL (8.5-10.1) Phosphorus Level 3.3 MG/DL (2.5-4.9) Magnesium Level 2.1 MG/DL (1.8-2.4) Total Bilirubin 0.6 MG/DL (0.2-1.0) Aspartate Amino Transf (AST/SGOT) 13 U/L (15-37) L Alanine Aminotransferase (ALT/SGPT) 17 U/L (12-78) Alkaline Phosphatase 124 U/L (46-116) H Total Protein 6.5 G/DL (6.4-8.2) Albumin 2.6 G/DL (3.4-5.0) L Globulin 3.9 g/dL Albumin/Globulin Ratio 0.7 (1.0-2.7) L Folate 19.1 NG/ML (8.6-58.9) General: well developed, well nourished Head: normocophalic Neck: no rigidity EENT: benign Neurologic Exam Mental Status: awake, alert, oriented x4, normal cognition, good mathematical skills, normal recent memory, normal remote memory, preserved visuospatial function Speech: normal speech, no dysarthia Language: normal language, no aphasia Cranial Nerve II: fundus normal, visual abreu, no papilledema Cranial Nerves III, IV, : PERRLA, EOMI, pupils Cranial Nerve V: normal facial sensations, temporales function normal, masseters function normal, pterygoids function normal Cranial Nerve VII: no facial asymmetry, normal facial expressions Cranial Nerve VIII: normal hearing, no nystagmus Cranial Nerve IX: normal palate elevation, gag response Cranial Nerve X: no voice hoarseness Cranial Nerve XI: SCM symmetric, trapezii function normal Cranial Nerve XII: tongue midline, no tongue atrophy/fasciculations Motor System: normal muscle tone, strength 5/5, no involuntary movement, no muscle wasting Sensory: normal pinprick, normal light touch, normal position sense, normal graphesthesia Coordination: normal finger to nose bilaterally, normal heel to vasques bilaterally, negative Romberg test Deep Tendon Reflexes: 2+ bicep (L), 2+ bicep (R), 2+ tricep (L), 2+ tricep (R) , 2+ brachioradialis (L), 2+ brachioradialis (R), 2+ knee (L), 2+ knee (R), 2+ ankle (L), 2+ ankle (R) Stance: normal Gait: stable, normal regular, heel + toe gait Impression/Recommendations Problems: (1) Cocaine abuse (2) Hypertension (3) CVA (cerebral vascular accident) Assessment & Plan: There are multiple old lacunar infarcts in the left basal ganglia. No acute hemorrhage. No mass effect nor midline shift. Normal lópez-white differentiation elsewhere. There is some soft tissue thickening of the high parietal scalp at the vertex. Late subacute versus old right posterior cerebral artery distribution infarct [facility] [address] [place] [address] [phone], fax [phone] Ethan Barbosa M.D. Kitchen Manager Patient : PINEDA GANDHI Referring Physician: Jacey Darby N.P. ID Number: [id number] Service Date: 12/01/18 : 1955 Report Date: 12/01/18 Gender: M Accession No.: [id number] Location: Procedure: MRI Brain no Contrast Indication: Headache and dizziness Technique: sagittal T1 fast spin echo, axial T1 FLAIR, axial T2 FLAIR, axial T2 FS PROPELLER, axial T2* GRE, axial diffusion weighted images. ADC and exponential ADC maps generated Comparison: CT brain dated 11/29/2018 Findings: Area of restricted diffusion is seen in the right occipital lobe, extending into the right aspect of the corpus callosum and into the medial posterior temporal lobe and hippocampal region. There is also some cephalad extension into the posterior medial right parietal lobe. There is corresponding increased T2 signal on the T2 and T2 FLAIR images, only minimal signal abnormality on the T1-weighted images. There are curvilinear areas of susceptibility artifact within this area on the GRE images, indicating likely areas of petechial hemorrhage. There is only minimal if any attenuation of the adjoining CSF spaces. No associated midline shift. No other foci of abnormal diffusion signal demonstrated. Distribution of abnormalities corresponds to that seen on recent CT scan. Note that neither posterior cerebral artery flow void is visualized; MRA performed the same time demonstrates patency of the left posterior cerebral artery but occlusion of the right P2 origin. There is age-related enlargement of the ventricles and extra axial CSF spaces. There is periventricular deep white matter high T2 signal consistent with chronic microvascular ischemic change. There is an unusual infarct of the corpus callosum crossing the midline which is best appreciated on the sagittal images. No significant mass effect or midline shift. No other vascular flow voids are preserved. There is evidence of prior bilateral cataract surgery. There is questionably ethmoid sinus mucosal disease. Impression: Restricted diffusion in the and in the right occipital and posterior temporal lobes extending to the corpus callosum, consistent with acute or subacute infarct. Presence of very low attenuation on images area on CT scan of 2 days earlier indicates that this is subacute. There is a susceptibility artifact within the area of infarct on GRE images indicates likely component of petechial hemorrhage. Minimal local mass effect Other chronic and age-related changes, as described Unusual old lacunar infarct of the central corpus callosum Minimal sinus disease. Findings discussed by phone with nurse practitioner Jacey Darby at the time of interpretation Dictated By: Fahad Lin MD Electronically Signed By: Fahad Lin MD Signed Date/Time 12/01/18 [id number] CC: Jacey Darby N.PYesika; Erin Romero MD (4) Diabetes mellitus out of control Status: not improved Diagnostic Impression Subacute infarction of right occipital and posterior temporal lobes extending to the corpus callosum with partial hemorrhagic transformation and uncontrolled hypertension - likely this patient has ESSENTIAL hypertension along with stimulant induced hypertension and headache. Pain managment with narcotics recommended, minimum dose required - Ativan 1mg TID for anxiousness Multiple chronic infarcts Given ongoing HTN and ineffectiveness or oral meds on BP, recommend continued telemetry and IV Hydralazine 10mg Q4 until patient's BP normalizes below SBP<140 / DBP < 100 Recommendations Headache/ Dizziness secondary to CVA / HTN Query acuity of CVA with MRI Brain MRA Head/ Neck to evaluate cerebrovascular blood supply and vasculature for cocaine induced aneurysms SBP< 150 Cont ASA 81mg Labs Pending Echo Q4 Hour Neuro Obs Swallow studies pending PT Eval - recs for ARU/SNF potentially. Maintain normoglycemia with ISS Check HgBA1c/Lipids/ TSH etc. LABILE BP - please ensure IV hydralazine is in place as patient becomes symptomatic with hypertension. BP SHOULD NO LONGER BE PERMISSIVELY HYPERTENSIVE BECAUSE NOW THE RISK OF HEMORRAGHIC TRANSFER is higher than it is in the hyperacute setting BP PARAMETERS ARE SBP< 140 DBP< 100 Jacey Darby N.P. Dec 01, 2018 13:28
--- NOTE | 2018-12-01 13:51 | NUR ---
P.T NOTE: LATE ENTRY 1030 PATIENT CONTINUE TO REPORT C/O SEVERE HEADACHE 9 REST, AGGRAVATED WITH HEAD MOVEMENT AND MOBILITY 03/22 . PATIENT STATED HE'D RATHER GET SOME REST TODAY DUE TO LACK OF SLEEP. WILL REATTEMPT TOMORROW. RN NOTIFIED.
[2018-12-01] MEDS ORDERED: HydrALAZINE 50mg tab ORAL SCH (14:00)
[2018-12-01] MEDS ORDERED: Isovue-370 150ml vial INJ PRN (14:00)
--- NOTE | 2018-12-01 14:12 | Diagnostic Imaging Report ---
Indication: Headache and dizziness Technique: sagittal T1 fast spin echo, axial T1 FLAIR, axial T2 FLAIR, axial T2 FS PROPELLER, axial T2* GRE, axial diffusion weighted images. ADC and exponential ADC maps generated Comparison: CT brain dated 11/29/2018 Findings: Area of restricted diffusion is seen in the right occipital lobe, extending into the right aspect of the corpus callosum and into the medial posterior temporal lobe and hippocampal region. There is also some cephalad extension into the posterior medial right parietal lobe. There is corresponding increased T2 signal on the T2 and T2 FLAIR images, only minimal signal abnormality on the T1-weighted images. There are curvilinear areas of susceptibility artifact within this area on the GRE images, indicating likely areas of petechial hemorrhage. There is only minimal if any attenuation of the adjoining CSF spaces. No associated midline shift. No other foci of abnormal diffusion signal demonstrated. Distribution of abnormalities corresponds to that seen on recent CT scan. Note that neither posterior cerebral artery flow void is visualized; MRA performed the same time demonstrates patency of the left posterior cerebral artery but occlusion of the right P2 origin. There is age-related enlargement of the ventricles and extra axial CSF spaces. There is periventricular deep white matter high T2 signal consistent with chronic microvascular ischemic change. There is an unusual infarct of the corpus callosum crossing the midline which is best appreciated on the sagittal images. No significant mass effect or midline shift. No other vascular flow voids are preserved. There is evidence of prior bilateral cataract surgery. There is questionably ethmoid sinus mucosal disease. Impression: Restricted diffusion in the and in the right occipital and posterior temporal lobes extending to the corpus callosum, consistent with acute or subacute infarct. Presence of very low attenuation on images area on CT scan of 2 days earlier indicates that this is subacute. There is a susceptibility artifact within the area of infarct on GRE images indicates likely component of petechial hemorrhage. Minimal local mass effect Other chronic and age-related changes, as described Unusual old lacunar infarct of the central corpus callosum Minimal sinus disease. Findings discussed by phone with nurse practitioner Jacey Darby at the time of interpretation
[2018-12-01] MEDS ORDERED: cloNIDine 0.2mg Tab ORAL SCH (15:13)
--- NOTE | 2018-12-01 15:13 | Nephrology Progress Note ---
Assessment/Plan Problem List: (1) Diabetic nephropathy (2) Hypertension (3) Diabetes mellitus out of control (4) CVA (cerebral vascular accident) (5) Cocaine abuse Assessment HTN OOC Cocaine abuse CVA High Chol Proteinuria- DM Plan BP control add Hydralazine to norvasc BS control no beta blockers ( cocaine abuse0 check labs, chol.... per orders Subjective ROS Limited/Unobtainable: No Constitutional: Reports: malaise Objective Objective Last 24 Hour Vital Signs Date Time Temp Pulse Resp B/P (MAP) Pulse Ox O2 Delivery O2 Flow Rate FiO2 12/01/18 13:42 191/104 12/01/18 10:10 187/87 12/01/18 09:19 68 173/89 12/01/18 08:00 98.3 68 20 173/89 (117) 97 12/01/18 05:50 168/96 12/01/18 04:00 66 12/01/18 04:00 98.3 72 18 168/85 (112) 97 12/01/18 01:36 178/95 12/01/18 00:00 98.1 70 18 178/95 (122) 97 12/01/18 00:00 69 11/30/18 21:13 186/86 11/30/18 21:00 Room Air 11/30/18 20:00 97.3 86 20 175/98 (123) 95 11/30/18 20:00 74 11/30/18 18:21 164/88 11/30/18 17:19 71 169/81 11/30/18 16:00 71 11/30/18 16:00 97.8 68 20 169/81 (110) 96 Intake and Output 11/30/18 12/01/18 18:59 06:59 Intake Total 660 ml 550 ml Output Total 450 ml Balance 210 ml 550 ml Intake Oral 260 ml IV Total 400 ml 550 ml Output Urine Total 450 ml Laboratory Tests 12/01/18 04:50: Sodium Level 141, Potassium Level 3.9, Chloride Level 106, Carbon Dioxide Level 24, Anion Gap 11, Blood Urea Nitrogen 10, Creatinine 1.2, Estimat Glomerular Filtration Rate > 60, Glucose Level 117H, Calcium Level 8.7, Phosphorus Level 3.3, Magnesium Level 2.1, Total Bilirubin 0.6, Aspartate Amino Transf (AST/SGOT ) 13L, Alanine Aminotransferase (ALT/SGPT) 17, Alkaline Phosphatase 124H, Total Protein 6.5, Albumin 2.6L, Globulin 3.9, Albumin/Globulin Ratio 0.7L, Folate 19.1 Height (Feet): 5 Height (Inches): 11.00 Weight (Pounds): 219 General Appearance: no apparent distress Cardiovascular: normal rate Respiratory/Chest: lungs clear Abdomen: soft Manan Amezcua MD Dec 01, 2018 15:13
--- NOTE | 2018-12-01 16:03 | Diagnostic Imaging Report ---
Indications: Headache, dizziness, posterior cerebral artery distribution infarct on recent CT and MRI Technique: 3D [id number] images obtained through the [employer] [facility] [place] of [place]. MIP reconstructions were generated in multiple rotational projections Comparison: none Findings: There is some image degradation due to motion artifact. Patent codominant bilateral distal vertebral arteries. Agent nonstenotic basilar artery. Patent anterior inferior cerebellar arteries and patent superior cerebellar arteries. The right anterior communicating artery is patent. The right P1 segment is patent, but and posterior cerebral artery occludes immediately past the junction with the posterior communicating artery and no flow is seen distally. The left P1 segment and proximal P2 branches are patent. There is suggestion of some narrowing of the P1 segment on the MIP reconstructions. It is uncertain whether this is a true finding or artifactual given the presence of considerable motion. The anterior circulation demonstrates apparent narrowing of the anterior carotid siphons bilaterally, but suspect that this is artifactual. Grossly patent and grossly nonstenotic bilateral M1 segments. The right A1 segment is not definitely visualized, may be congenitally absent. A large left A1 segment is noted, and both A2 segments are visualized although somewhat poorly. Impression: Limited exam, as described Evidence of occlusion of the origin of the P2 segment of the posterior cerebral artery on the right. This correlates with the distribution of the infarct demonstrated on recent MRI and CT Limited assessment of the anterior circulation, due to motion artifact. Apparent absence of the right A1 segment, may be congenital/developmental. Significant stenoses of the carotid siphons are not excludable but probably just apparent due to motion artifact Findings previously discussed by phone with nurse practitioner Jacey Darby
[2018-12-01] MEDS: Lisinopril 10mg tab ORAL SCH (17:37)
--- NOTE | 2018-12-01 19:20 | NUR ---
NURSE NOTES: Received report from Dolores HENLEY, pt. in bed awake- pt. is A/O x's4- able to make needs known, cardiac monitoring on, no signs or symptoms of acute cardiac or respiratory distress noted, bed in lowest position and call light within easy reach, bed alarm on, side rails up x's3 and safety brakes engaged, pt. appears to be sating well on room air at 99%- no distress noted, Urinal at bedside and within easy reach, comfort measures provided, all needs attended to, pt. is clean and dry in bed, RFA 20G IV intact and patent-SL, and Rt. hand 20G IV intact and patent, safety measures continued, will continue with plan of care.
--- NOTE | 2018-12-01 19:31 | NUR ---
HAND-OFF: Report given to Lilia HENLEY. Pt is in stable condition no respiratory distress. Pt pain is decreasing. Hypertation meds IV push have been given.
--- NOTE | 2018-12-01 20:00 | NUR ---
NURSE NOTES: pt. states he is not ready to do MRA of neck- due to awkward positioning and headache he has right now. Will continue to monitor pt. and with plan of care.
--- NOTE | 2018-12-01 20:29 | NUR ---
Notified Wilner PATE about high blood pressure of 191/88. Wilner ordered 10mg Hydralazine IV push q4hrs prn. she does not want to Dc any medication that has been previously ordered, if these meds don't bring b/P down ok to use hydralazine PRN order.
[2018-12-01] MEDS: Levemir Flexpen SUBQ SCH (20:41)
[2018-12-01] MEDS: HydrALAZINE 50mg tab ORAL SCH (21:25)
--- NOTE | 2018-12-01 22:29 | General Progress Note ---
Assessment/Plan Problem List: (1) Hypertension ICD Codes: I10 - Essential (primary) hypertension SNOMED: 85699428 Qualifiers: Qualified Codes: I10 - Essential (primary) hypertension (2) Diabetes mellitus out of control ICD Codes: E11.65 - Type 2 diabetes mellitus with hyperglycemia SNOMED: 39137027, 939861199 (3) CVA (cerebral vascular accident) ICD Codes: I63.9 - Cerebral infarction, unspecified SNOMED: 577976525 Qualifiers: Qualified Codes: I63.9 - Cerebral infarction, unspecified Status: progressing, not improved Assessment/Plan: r/o tia htn dm no headache bp improving discuss w neuro re findings reviewed chart and labs Subjective ROS Limited/Unobtainable: Yes Allergies: Coded Allergies: No Known Allergies (Unverified , 11/29/18) Objective Last 24 Hour Vital Signs Date Time Temp Pulse Resp B/P (MAP) Pulse Ox O2 Delivery O2 Flow Rate FiO2 12/01/18 21:25 173/95 12/01/18 21:25 173/95 12/01/18 21:20 82 173/95 (121) 12/01/18 21:00 98.1 12/01/18 20:00 98 12/01/18 20:00 Room Air 12/01/18 18:55 189/93 12/01/18 17:37 186/97 12/01/18 17:36 85 186/97 12/01/18 16:00 84 12/01/18 16:00 98.1 73 20 165/76 (105) 97 12/01/18 15:28 191/88 12/01/18 13:42 191/104 12/01/18 12:00 70 12/01/18 10:10 187/87 12/01/18 09:19 68 173/89 12/01/18 09:00 Room Air 12/01/18 08:00 63 12/01/18 08:00 98.3 68 20 173/89 (117) 97 12/01/18 05:50 168/96 12/01/18 04:00 66 12/01/18 04:00 98.3 72 18 168/85 (112) 97 12/01/18 01:36 178/95 12/01/18 00:00 98.1 70 18 178/95 (122) 97 12/01/18 00:00 69 Intake and Output 11/30/18 12/01/18 19:00 07:00 Intake Total 540 ml 670 ml Output Total 450 ml Balance 90 ml 670 ml Intake Oral 140 ml 120 ml IV Total 400 ml 550 ml Output Urine Total 450 ml Laboratory Tests 12/01/18 04:50: Sodium Level 141, Potassium Level 3.9, Chloride Level 106, Carbon Dioxide Level 24, Anion Gap 11, Blood Urea Nitrogen 10, Creatinine 1.2, Estimat Glomerular Filtration Rate > 60, Glucose Level 117H, Calcium Level 8.7, Phosphorus Level 3.3, Magnesium Level 2.1, Total Bilirubin 0.6, Aspartate Amino Transf (AST/SGOT ) 13L, Alanine Aminotransferase (ALT/SGPT) 17, Alkaline Phosphatase 124H, Total Protein 6.5, Albumin 2.6L, Globulin 3.9, Albumin/Globulin Ratio 0.7L, Folate 19.1 Height (Feet): 5 Height (Inches): 11.00 Weight (Pounds): 219 Neck: supple Cardiovascular: normal rate Respiratory/Chest: lungs clear Abdomen: soft Erin Romero MD Dec 01, 2018 22:29
[2018-12-02] VITALS: BP 157/76
[2018-12-02] MEDS: HYDROmorphone 1mg/ml Carpuject IVP PRN ×2 (02:00→08:20)
[2018-12-02 04:00] VITALS: BP 168/79
[2018-12-02] MEDS: HydrALAZINE 50mg tab ORAL SCH (05:37)
[2018-12-02] MEDS: NovoLOG Insulin Flexpen SUBQ SCH ×2 (06:06→12:34)
--- NOTE | 2018-12-02 07:04 | NUR ---
HAND-OFF: Report given to Balta HENLEY, pt. remains stable and no signs of distress noted.
--- NOTE | 2018-12-02 07:04 | NUR ---
NURSE NOTES: Received report from KALE Rodrigues. Pt is sitting up in bed sleeping. Bed is in lowest position, side rails up X4, and call light is within reach. Will continue to monitor.
[2018-12-02 08:00] VITALS: BP 166/93
--- NOTE | 2018-12-02 08:14 | General Progress Note ---
Assessment/Plan Problem List: (1) Diabetes mellitus out of control ICD Codes: E11.65 - Type 2 diabetes mellitus with hyperglycemia SNOMED: 54907037, 053075747 (2) CVA (cerebral vascular accident) ICD Codes: I63.9 - Cerebral infarction, unspecified SNOMED: 789304649 Qualifiers: Qualified Codes: I63.9 - Cerebral infarction, unspecified (3) Hypertension ICD Codes: I10 - Essential (primary) hypertension SNOMED: 86759428 Qualifiers: Qualified Codes: I10 - Essential (primary) hypertension (4) Cocaine abuse ICD Codes: F14.10 - Cocaine abuse, uncomplicated SNOMED: 61551951 Status: progressing, not improved Assessment/Plan: increase Levemir to 24 units qhs continue Starlix 120 mg ac tid continue NISS ac / hs Subjective Allergies: Coded Allergies: No Known Allergies (Unverified , 11/29/18) All Systems: reviewed and negative except above Subjective events noted fasting glucose is elevated Item Value Date Time Bedside Blood Glucose 207 mg/dl H 12/02/18 0606 Bedside Blood Glucose 219 mg/dl H 12/01/18 2041 Bedside Blood Glucose 189 mg/dl H 12/01/18 1630 Bedside Blood Glucose 138 mg/dl H 12/01/18 1125 Bedside Blood Glucose 128 mg/dl H 12/01/18 0630 Objective Last 24 Hour Vital Signs Date Time Temp Pulse Resp B/P (MAP) Pulse Ox O2 Delivery O2 Flow Rate FiO2 12/02/18 05:37 158/82 12/02/18 05:36 158/82 12/02/18 04:37 168/79 12/02/18 04:00 98.3 84 18 168/79 (108) 98 12/02/18 04:00 79 12/02/18 02:30 98.0 12/02/18 00:00 98.0 87 18 157/76 (103) 96 12/02/18 00:00 82 12/01/18 23:03 168/83 12/01/18 22:34 79 168/83 (111) 12/01/18 21:25 173/95 12/01/18 21:25 173/95 12/01/18 21:20 82 173/95 (121) 12/01/18 20:00 98 12/01/18 20:00 Room Air 12/01/18 20:00 98.2 82 18 157/84 (108) 98 12/01/18 18:55 189/93 12/01/18 17:37 186/97 12/01/18 17:36 85 186/97 12/01/18 16:00 84 12/01/18 16:00 98.1 73 20 165/76 (105) 97 12/01/18 15:28 191/88 12/01/18 13:42 191/104 12/01/18 12:00 70 12/01/18 10:10 187/87 12/01/18 09:19 68 173/89 12/01/18 09:00 Room Air Intake and Output 12/01/18 12/02/18 19:00 07:00 Intake Total 190 ml Output Total 200 ml Balance 190 ml -200 ml Intake Oral 140 ml IV Total 50 ml Output Urine Total 200 ml Height (Feet): 5 Height (Inches): 11.00 Weight (Pounds): 219 General Appearance: no apparent distress Neck: normal alignment Cardiovascular: normal rate Respiratory/Chest: lungs clear Abdomen: normal bowel sounds Pelvis: normal external exam Objective Current Medications Medications (Trade) Dose Ordered Sig/Jessie Route PRN Reason Start Time Stop Time Status Last Admin Dose Admin Acetaminophen (Tylenol) 500 mg Q4H PRN ORAL Mild Pain/Temp > 100.5 11/29/18 06:30 12/29/18 06:29 11/29/18 20:55 Aspirin (ASA) 81 mg DAILY ORAL 11/30/18 09:00 12/30/18 08:59 12/01/18 09:20 Clonidine HCl (Catapres Tab) 0.1 mg EVERY 8 HOURS ORAL 12/01/18 22:00 12/31/18 21:59 12/02/18 05:36 Dextrose (Dextrose 50%) 25 ml Q30M PRN IV Hypoglycemia 11/29/18 18:45 12/29/18 18:44 Dextrose (Dextrose 50%) 50 ml Q30M PRN IV Hypoglycemia 11/29/18 18:45 12/29/18 18:44 Finasteride (Proscar) 5 mg DAILY ORAL 11/29/18 09:00 12/29/18 08:59 12/01/18 09:19 Gabapentin (Neurontin) 300 mg TID ORAL 11/30/18 00:00 12/29/18 00:00 12/01/18 17:35 Hydralazine HCl (Apresoline) 10 mg Q4H PRN IV systolic pressure of 160 12/01/18 18:35 12/31/18 18:34 12/02/18 04:37 Hydralazine HCl (Apresoline) 50 mg Q8HR ORAL 12/01/18 22:00 12/30/18 21:59 12/02/18 05:37 Hydromorphone HCl (Dilaudid) 1 mg Q4H PRN IVP For Pain 11/29/18 23:15 12/06/18 23:14 12/02/18 02:00 Insulin Aspart (NovoLOG) AC+HS SUBQ 11/29/18 21:00 12/29/18 11:29 12/02/18 06:06 Insulin Detemir (Levemir) 20 units BEDTIME SUBQ 11/29/18 21:00 12/29/18 20:59 12/01/18 20:41 Iopamidol (Isovue-370 150ml) 150 ml NOW PRN INJ Radiology Procedure 12/01/18 14:00 12/03/18 13:54 Lisinopril (Zestril) 10 mg BID ORAL 12/01/18 18:00 12/31/18 09:29 12/01/18 17:37 Nateglinide (Starlix) 120 mg TIAC ORAL 11/29/18 16:30 12/29/18 16:29 12/02/18 05:36 Nifedipine (Procardia XL) 30 mg BID ORAL 12/01/18 18:00 12/31/18 17:59 12/01/18 17:36 Ondansetron HCl (Zofran) 4 mg Q6H PRN IVP Nausea & Vomiting 11/30/18 12:30 12/30/18 12:29 12/01/18 10:10 Oxycodone/ Acetaminophen (Percocet 10/325) 1 tab Q6H PRN ORAL Moderate Pain (Pain Scale 4-6) 12/01/18 15:45 12/08/18 15:44 Pantoprazole (Protonix) 40 mg BID ORAL 11/29/18 18:00 12/29/18 08:59 12/01/18 17:36 Potassium Chloride (K-Dur) 20 meq DAILY ORAL 12/02/18 09:00 12/30/18 16:44 Tamsulosin HCl (Flomax) 0.4 mg BID ORAL 11/29/18 18:00 12/29/18 17:59 12/01/18 17:36 Devin Velasco MD Dec 02, 2018 08:14
[2018-12-02] MEDS: Lisinopril 10mg tab ORAL SCH (08:19)
[2018-12-02] MEDS: Tamsulosin 0.4mg cap ORAL SCH (08:20)
[2018-12-02] MEDS: Aspirin Baby 81mg ORAL SCH (08:20)
[2018-12-02] MEDS ORDERED: Minoxidil 2.5mg tab ORAL PRN (09:30)
--- NOTE | 2018-12-02 11:49 | Nephrology Progress Note ---
Assessment/Plan Problem List: (1) Diabetic nephropathy (2) Hypertension (3) Diabetes mellitus out of control (4) CVA (cerebral vascular accident) (5) Cocaine abuse Assessment HTN better control Cocaine abuse CVA High Chol Proteinuria- DM Plan BP control add Hydralazine to norvasc BS control no beta blockers ( cocaine abuse0 check labs, chol.... per orders med surg Subjective ROS Limited/Unobtainable: No Constitutional: Reports: malaise Objective Objective Last 24 Hour Vital Signs Date Time Temp Pulse Resp B/P (MAP) Pulse Ox O2 Delivery O2 Flow Rate FiO2 12/02/18 08:19 166/93 12/02/18 08:18 75 166/93 12/02/18 08:00 98.4 75 19 166/93 (117) 98 12/02/18 05:37 158/82 12/02/18 05:36 158/82 12/02/18 04:37 168/79 12/02/18 04:00 98.3 84 18 168/79 (108) 98 12/02/18 04:00 79 12/02/18 02:30 98.0 12/02/18 00:00 98.0 87 18 157/76 (103) 96 12/02/18 00:00 82 12/01/18 23:03 168/83 12/01/18 22:34 79 168/83 (111) 12/01/18 21:25 173/95 12/01/18 21:25 173/95 12/01/18 21:20 82 173/95 (121) 12/01/18 20:00 98 12/01/18 20:00 Room Air 12/01/18 20:00 98.2 82 18 157/84 (108) 98 12/01/18 18:55 189/93 12/01/18 17:37 186/97 12/01/18 17:36 85 186/97 12/01/18 16:00 84 12/01/18 16:00 98.1 73 20 165/76 (105) 97 12/01/18 15:28 191/88 12/01/18 13:42 191/104 12/01/18 12:00 70 Intake and Output 12/01/18 12/02/18 19:00 07:00 Intake Total 190 ml Output Total 200 ml Balance 190 ml -200 ml Intake Oral 140 ml IV Total 50 ml Output Urine Total 200 ml Height (Feet): 5 Height (Inches): 11.00 Weight (Pounds): 219 General Appearance: no apparent distress Cardiovascular: normal rate Respiratory/Chest: lungs clear Abdomen: soft Objective no change Manan Amezcua MD Dec 02, 2018 11:49
[2018-12-02 12:00] VITALS: BP 169/86
--- NOTE | 2018-12-02 12:02 | NUR ---
NURSE NOTES: Dr. Amezcua put in transfer order for pt. I called and notified him that the patient was to be discharged home per Dr. Romero orders.
[2018-12-02] MEDS ORDERED: Tubing IV Secondary IV ONE (13:29)
[2018-12-02] MEDS ORDERED: NS 275ml ONE (13:29)
--- NOTE | 2018-12-02 13:43 | NUR ---
NURSE NOTES: Pt was discharged per MD orders. Heart monitor was removed and returned to residential monitor. Belongings accounted for and with patient. Signed belongings list is in the chart. Pt stable at time of discharge
[2018-12-02] MEDS ORDERED: Lisinopril 20mg tab ORAL SCH (18:00)
[2018-12-02] MEDS ORDERED: Levemir Flexpen SUBQ SCH (21:00)
--- NOTE | 2018-12-06 08:31 | Discharge Summary ---
Discharge Summary Discharge Summary _ DATE OF ADMISSION: 11/29/2018 DATE OF DISCHARGE: 2018 DISCHARGED BY: Dr Romero REASON FOR ADMISSION: 63 years old male with past medical history of hypertension, diabetes mellitus, hypercholesterolemia, history of CVA in 1999, presented with a chief complaint of headache for last 5 hours. He also reported high blood pressure. Pain reported to be throbbing and diffused , no focal deficit, pain was rated 10 out of 10 on a scale 1-10. No relief with blood pressure medication. Patient's noticed some slight slurring of speech No trauma, no injury. Patient denied fever or chills. No chest pain. No nausea or vomiting Upon evaluation vital signs reveal severely elevated blood pressure 180/90. CT of the head revealed late subacute versus old right posterior cerebral artery distribution infarct. Other old infarcts. Other chronic and age-related changes. No evidence of acute intracranial bleeding or mass-effect. Questionable high parietal midline scalp soft tissue injury Urine toxicology screen was positive for cocaine. No leukocytosis, stable hemoglobin and hematocrit. BUN 17, creatinine 1.5. Glucose 400. EKG revealed sinus rhythm, no acute ischemic changes. Patient admitted to telemetry floor for further management. CONSULTANTS: neurologist Dr. Harvey fur finisher Dr. Amezcua avionics integration engineer Dr. Velasco pain specialist Dr. Mullins [facility] COURSE: Patient admitted to telemetry floor. Blood pressure was managed by fur finisher with multiply antihypertensive medication. Blood pressure remained very labile. Multiply titration and adjustments were necessary. Neurologist closely followed. Neuro-checks were done every 4 hours. Patient undergone brain MRI, which revealed restricted diffusion in the right occipital and posterior temporal lobe extending to the corpus callosum, consistent with acute versus subacute infarct. Presence on the CT scan indicates that this was subacute infarct. Unusual old lacunar infarct of the central corpus callosum noted as well. Per neurologist, patient had subacute infarction of right occipital and posterior temporal lobe , extending to the corpus callosum with partial hemorrhagic transformation and uncontrolled blood pressure. Per neurologist, essential hypertension along with stimulant induced hypertension led to uncontrolled hypertension and CVA with manifesting severe headache. MRI and neck MRA revealed evidence of occlusion of the posterior cerebral artery on the right, which correlates with the distribution of an infarct demonstrated on recent MRI. Venous duplex bilateral lower extremity revealed no evidence of acute DVT. Echocardiogram demonstrated ejection fraction of 60% with normal left ventricular chamber size and wall motion. No evidence of pericardial effusion. Mild left ventricular hypertrophy. Right ventricular systolic pressure of 37 consistent with a mild pulmonary hypertension. Patient started on antiplatelet therapy with aspirin and statin. Lipid panel was stable. Blood pressure improved with multiply antihypertensive medication. No beta-blockers in the regimen, given active cocaine use. Patient started to work with physical therapy. Bedside swallow evaluation revealed that patient had a silent aspiration risk due to late subacute CVA. Diet was initiated as per speech therapist recommendation : soft, easy to use to chew, with thin liquids. Aspiration precaution maintained. Video swallow evaluation was recommended, which can be done as outpatient. Per neurologist , patient should no longer be permissively hypertensive , because he his risk of hemorrhagic transfer was higher . Blood pressure parameters recommended to be with a systolic blood pressure below 140 and diastolic blood pressure below 100. Antihypertensive medication regimen further optimized as per fur finisher. Blood sugar was managed as per avionics integration engineer recommendation. Hemoglobin A1c 9.0, not at goal. Patient with evidence of initial hyperglycemia. Blood pressure was managed with Starlix, long-acting Levemir and sliding scale of insulin as needed. Diabetic, cardiac, low-fat, low-cholesterol diet provided. TSH within normal limits. Pain management was addressed as per pain specialist recommendation for thalamic pain syndrome. Potassium was replaced. Renal parameters electrolytes are closely monitored. Electrolytes further corrected as needed. Nephrotoxic's were avoided. Prior to discharge BUN 10, creatinine 1.2. Patient was counseled on abstinence from illicit street drugs. GI prophylaxis provided. Supportive care provided. Patient clinically improved and was ready for discharge home. Follow up with primary care provider in one week. FINAL DIAGNOSES: Hypertensive emergency Subacute infarct of right occipital and posterior temporal lobes Diabetes s mellitus [id number] Cocaine abuse Thalamic pain syndrome DISCHARGE MEDICATIONS: See Medication Reconciliation list. DISCHARGE INSTRUCTIONS: Patient was discharged home. Follow up with primary care provider in one week. I have been assigned to dictate discharge summary for this account. I was not involved in the patient's management. Sofiya Nelson NP Dec 06, 2018 08:31
== END 2018-12-02 13:30 | disposition home or self-care (01) | DRG 45 ==
LOC: EDBD 02:54 → EMR 03:11 → 2W 04:47 → EDBEDREQ 05:45 → 2W 21:56 → 2E 11-30 06:00
DX: I63.9 Cerebral infarction, unspecified (principal); E11.21 Type 2 diabetes mellitus with diabetic nephropathy; I16.1 Hypertensive emergency; R51 Headache; Z86.73 Personal history of transient ischemic attack (TIA), and cerebral infarction without residual deficits; E11.65 Type 2 diabetes mellitus with hyperglycemia; F14.10 Cocaine abuse, uncomplicated; G89.0 Central pain syndrome; N40.0 Benign prostatic hyperplasia without lower urinary tract symptoms; E78.5 Hyperlipidemia, unspecified; Z87.891 Personal history of nicotine dependence
CPT/HCPCS: 36415; 70450; 70544; 70551; 80048; 80053; 80061; 80307; 81001; 82550; 82607; 82746; 82962; 82977; 83036; 83735; 83880; 84100; 84443; 84484; 84550; 85025; 86140; 93005; 93306; 93970; 96361; 96374; 96375; 99285; J1815; J2405; J2765; J8499; S5561

== ENCOUNTER 2019-04-21 00:46 | Emergency (ER) | payer OTHER ==
[~2019-04-21] VITALS: Ht 167.6 cm; Wt 72.6 kg
[~2019-04-21 00:46] MED LIST: ATHLETIC FOOT C30 GM TOPIC; ERGOCALCIFEROL1 GM MC; GABAPENTIN400 MG ORAL; INSULIN LI100 UNIT/1 SQ; METFORMIN HCL500 M1 ORAL; OMEPRAZOLE20 M2 ORAL; PRINIVIL10 MG ORAL; PROSCAR5 MG ORAL
--- NOTE | 2019-04-21 00:53 | Emergency Room Report ---
History of Present Illness General Chief Complaint: Abdominal Pain Source: Patient Present Illness HPI Disclaimer: Please note that this report is being documented using [email or web address] technology. This can lead to erroneous entry secondary to incorrect interpretation by the dictating instrument. HPI: 64-year-old male with history of stroke, hypertension, hyper lipidemia, diabetes and BPH presents for evaluation of constipation and abdominal pain. Symptoms have been present for approximately 3 days. He has not had a bowel movement and has not been passing gas for 1 day. He notes nausea but denies vomiting. He did have some episodes of emesis earlier in the week but is is now resolved. He denies any diarrhea. He denies any dysuria, hematuria. No exacerbating or relieving symptoms. PMH: CVA, hypertension, hyperlipidemia, diabetes, BPH PSH: Reviewed in chart Allergies: None reported Social Hx: Denies drug or alcohol abuse Allergies: Coded Allergies: No Known Allergies (Unverified , 11/29/18) Nursing Documentation-PMH Hx Hypertension: Yes Hx Diabetes: Yes Hx Gastrointestinal Problems: No Hx Cerebrovascular Accident: Yes - stroke 1999, hypercholesterol Review of Systems All Other Systems: negative except mentioned in HPI Physical Exam Vital Signs Date Time Temp Pulse Resp B/P (MAP) Pulse Ox O2 Delivery O2 Flow Rate FiO2 04/21/19 00:47 97.9 86 18 150/80 (103) 98 Room Air General: Awake and alert, no acute distress HEENT: NC/AT. EOMI. Cardiovascular: RRR. S1 and S2 normal. No murmur appreciated Resp: Normal work of breathing. No cough, wheezing or crackles appreciated Abdomen: Abdomen is soft, nondistended. There is mild tenderness diffusely. Negative Arboleda sign, no rebound Skin: Intact. No abrasions, laceration or rash over the exposed skin MSK: Normal tone and bulk. Moving all extremities. No obvious deformity. Neuro: Awake and alert. Mentating appropriately. Medical Decision Making Diagnostic Impression: Primary Impression: Abdominal pain Additional Impressions: Constipation Fecal impaction ER Course 64-year-old male with a history of diabetes, hypertension, lipid anemia, BPH presents for evaluation of abdominal pain and constipation. Patient states he has not had a bowel movement in 3 or 4 days and notes worsening abdominal cramping over this time. He has no systemic signs of illness such as fever, vomiting and has no overflow diarrhea, dysuria or hematuria. Will obtain blood work to evaluate for metabolic infectious cause of constipation and a abdominal x-ray to evaluate for possible obstruction. Can advance work-up as needed. Laboratory Tests Test 04/21/19 01:15 White Blood Count 7.0 K/UL (4.8-10.8) Red Blood Count 4.48 M/UL (4.70-6.10) L Hemoglobin 13.0 G/DL (14.2-18.0) L Hematocrit 37.2 % (42.0-52.0) L Mean Corpuscular Volume 83 FL (80-99) Mean Corpuscular Hemoglobin 29.1 PG (27.0-31.0) Mean Corpuscular Hemoglobin Concent 35.1 G/DL (32.0-36.0) Red Cell Distribution Width 10.3 % (11.6-14.8) L Platelet Count 351 K/UL (150-450) Mean Platelet Volume 6.5 FL (6.5-10.1) Neutrophils (%) (Auto) 58.9 % (45.0-75.0) Lymphocytes (%) (Auto) 30.6 % (20.0-45.0) Monocytes (%) (Auto) 6.9 % (1.0-10.0) Eosinophils (%) (Auto) 1.8 % (0.0-3.0) Basophils (%) (Auto) 1.7 % (0.0-2.0) Urine Color Yellow Urine Appearance Clear Urine pH 6 (4.5-8.0) Urine Specific [place] 1.020 (1.005-1.035) Urine Protein 4+ (NEGATIVE) H Urine Glucose (UA) Negative (NEGATIVE) Urine Ketones Negative (NEGATIVE) Urine Blood Negative (NEGATIVE) Urine Nitrite Negative (NEGATIVE) Urine Bilirubin Negative (NEGATIVE) Urine Urobilinogen 4 MG/DL (0.0-1.0) H Urine Leukocyte Esterase 1+ (NEGATIVE) H Urine RBC 0-2 /HPF (0 - 0) H Urine WBC 2-4 /HPF (0 - 0) Urine Squamous Epithelial Cells Occasional /LPF Urine Bacteria Occasional /HPF (NONE) Urine Mucus Few /LPF (NONE/OCC) H Sodium Level 136 MMOL/L (136-145) Potassium Level 4.2 MMOL/L (3.5-5.1) Chloride Level 102 MMOL/L (98-107) Carbon Dioxide Level 25 MMOL/L (21-32) Anion Gap 9 mmol/L (5-15) Blood Urea Nitrogen 15 mg/dL (7-18) Creatinine 1.2 MG/DL (0.55-1.30) Estimate Glomerular Filtration Rate > 60 mL/min (>60) Glucose Level 217 MG/DL (74-106) H Calcium Level 8.2 MG/DL (8.5-10.1) L Total Bilirubin 0.7 MG/DL (0.2-1.0) Aspartate Amino Transferase (AST) 26 U/L (15-37) Alanine Aminotransferase (ALT) 16 U/L (12-78) Alkaline Phosphatase 119 U/L (46-116) H Total Protein 6.9 G/DL (6.4-8.2) Albumin 3.2 G/DL (3.4-5.0) L Globulin 3.7 g/dL Albumin/Globulin Ratio 0.9 (1.0-2.7) L Lipase 173 U/L (73-393) Other X-Ray Diagnostic Results Other X-Ray Diagnostic Results : X-Ray ordered: KUB # of Views/Limited Vs Complete: 1 View Indication: Pain EP Interpretation: Yes Interpretation: nonspecific bowel gas, no sbo Impression: No acute disease - Moderate stool burden Electronically Signed by: Electronically signed by Dr. Davonte Bernal Reevaluation Time: 06:10 Last Vital Signs Date Time Temp Pulse Resp B/P (MAP) Pulse Ox O2 Delivery O2 Flow Rate FiO2 04/21/19 00:47 97.9 86 18 150/80 (103) 98 Room Air Reevaluation Impression Labs have returned largely within normal limits. No significant white count, normal electrolytes, normal renal function, no evidence of urinary tract infection. Abdominal x-ray shows paucity of gas and pattern consistent with constipation but no evidence of SBO, volvulus, pneumatosis intestinalis or other significant pathology. Patient received magnesium citrate and a fleets enema while in the emergency department though these efforts were unsuccessful. Rectal exam shows significant stool burden in the rectal vault with a large mass. Disimpaction was performed at bedside. Patient had a large volume bowel movement following disimpaction. He will be discharged home with MiraLAX twice daily for the next week after which she can use daily to encourage normal bowel movements. He is to follow-up with his PMD in the next 2 to 3 days to discuss today's emergency department visit and return to the emergency department any abdominal pain, fever, vomiting, return of constipation or any other changes in his health. He understands and agrees with this treatment plan. Will be discharged home with outpatient follow-up Disposition: HOME, SELF-CARE Condition: Improved Scripts Polyethylene Glycol 3350* (MIRALAX*) 17 Gm Powd.pack 17 GM ORAL BID for 14 Days, #28 PACKET Prov: Davonte Bernal MD 04/21/19 Davonte Bernal MD Apr 21, 2019 00:53
[2019-04-21 01:00] VITALS: BP 150/80
--- NOTE | 2019-04-21 01:10 | NUR ---
ED Nurse Note: pt presents to ED c/o abd and back pain. pt reports being constipated for 4 days and not urinating for 7 hours today. pt rates his pain an 8/10 and c/o nausea but has not vomited today. pt reports taking ibuprofen and something else for pain without any relief of symptoms.
[2019-04-21 01:24] LABS: BASOPHILS % (AUTO) 1.7 % (0.0-2.0); EOSINOPHILS % (AUTO) 1.8 % (0.0-3.0); HEMATOCRIT 37.2 % (42.0-52.0); LYMPHOCYTES % (AUTO) 30.6 % (20.0-45.0); MEAN CORPUSCULAR VOLUME 83 FL (80-99); MONOCYTES % (AUTO) 6.9 % (1.0-10.0); NEUTROPHILS % (AUTO) 58.9 % (45.0-75.0); PLATELET COUNT 351 K/UL (150-450); RED BLOOD COUNT 4.48 M/UL (4.70-6.10); RED CELL DISTRIBUTION WIDTH 10.3 % (11.6-14.8)
[2019-04-21 01:39] LABS: ANION GAP 9 mmol/L (5-15); BLOOD UREA NITROGEN 15 mg/dL (7-18); CALCIUM 8.2 MG/DL (8.5-10.1); CARBON DIOXIDE 25 MMOL/L (21-32); CHLORIDE 102 MMOL/L (98-107); CREATININE 1.2 MG/DL (0.55-1.30); POTASSIUM 4.2 MMOL/L (3.5-5.1); SODIUM 136 MMOL/L (136-145)
[2019-04-21 01:43] LABS: ALANINE AMINOTRANSFERASE 16 U/L (12-78); ALBUMIN 3.2 G/DL (3.4-5.0); ALBUMIN/GLOBULIN RATIO 0.9 (1.0-2.7); ALKALINE PHOSPHATASE 119 U/L (46-116); ASPARTATE AMINO TRANSFERASE 26 U/L (15-37); BILIRUBIN,TOTAL 0.7 MG/DL (0.2-1.0)
[2019-04-21] MEDS ORDERED: Ketorolac 30mg Inj IV ONE (01:45)
[2019-04-21 01:50] LABS: APPEARANCE,URINE CLEAR; BILIRUBIN, URINE NEGATIVE (NEGATIVE); GLUCOSE, URINE (UA) NEGATIVE (NEGATIVE); KETONES,URINE NEGATIVE (NEGATIVE); LEUKOCYTE ESTERASE ,URINE 1+ (NEGATIVE); NITRITE,URINE NEGATIVE (NEGATIVE); PH,URINE 6 (4.5-8.0); PROTEIN,URINE 4+ (NEGATIVE); UROBILINOGEN,URINE 4 MG/DL (0.0-1.0)
[2019-04-21 01:51] LABS: COLOR,URINE YELLOW
[2019-04-21] MEDS ORDERED: Magnesium Citrate Liq Btl ORAL ONE (02:30)
[2019-04-21] MEDS ORDERED: Fleet's Enema 133ml RECTAL ONE (02:30)
--- NOTE | 2019-04-21 02:35 | NUR ---
ED Nurse Note: pt tolerated enema well, sitting on commode waiting for bowel movement. given magnesium citrate. will continue to monitor
[2019-04-21 02:51] VITALS: BP 152/78
[2019-04-21 04:56] VITALS: BP 147/78
[2019-04-21] MEDS ORDERED: MIRALAX17 G2 ORAL (05:36)
[2019-04-21] MEDS ORDERED: Fleet's Mineral Oil Enema RECTAL ONE (05:45)
--- NOTE | 2019-04-21 05:50 | NUR ---
ED Nurse Note: ERMD performed manual disempactment and removed moderate amount of stool. pt tolerated procedure well. Soap suds enema performed, pt was able to have a BM into bedside commode. pt reports "I feel better than when I first came in."
[2019-04-21 06:21] VITALS: BP 147/78
--- NOTE | 2019-04-21 06:24 | NUR ---
ED Nurse Note: Pt cleared by health care Provider for discharge. DC instructions/prescription was given and explained to pt and verbalized understanding of teachings. All medical deviecs such as ID band and IV removed. Pt is AAO x4, ambulatory and left with all personal belongings.
--- NOTE | 2019-04-23 15:39 | Diagnostic Imaging Report ---
Indication: Abdominal pain Comparison: None Single view of the abdomen obtained Findings: Bowel gas pattern is nonspecific. No mass, ectopic calcifications, or abnormal gas collections are identified. There is narrowing of intervertebral discs and accompanying endplate osteophyte formation. Hypertrophied facet joints also demonstrated. Impression: No acute findings
== END 2019-04-21 06:22 | disposition home or self-care (01) ==
LOC: EDBD 00:46 → EMR 01:09
DX: R10.9 Unspecified abdominal pain (principal); K59.00 Constipation, unspecified; E78.5 Hyperlipidemia, unspecified; Z86.73 Personal history of transient ischemic attack (TIA), and cerebral infarction without residual deficits; E78.00 Pure hypercholesterolemia, unspecified
CPT/HCPCS: 36415; 74018; 80053; 81003; 83690; 85025; 96374; J1885; Z7502; 99284